=== PATIENT | female | born 1995 | race Two or more races ===

== ENCOUNTER 2016-12-05 13:23 | Emergency (ER) | payer MEDICAID ==
[2016-12-05 13:32] VITALS: BP 104/68
[2016-12-05] MEDS ORDERED: Sodium Chloride 0.9% 10 ML Syringe FLUSH PRN (13:46)
[2016-12-05] MEDS ORDERED: Ondansetron 4 MG/2 ML SDV IV ONE (13:46)
--- NOTE | 2016-12-05 13:51 | EDM.PDOC ---
ED HPI GENERAL MEDICAL PROBLEM - General Chief Complaint: General Stated Complaint: NOT FEELING WELL Time Seen by Provider: 12/05/16 13:44 Source of Information: Reports: Patient History Limitations: Reports: No Limitations - History of Present Illness INITIAL COMMENTS - FREE TEXT/NARRATIVE: This 21 yo female patient reports to the ED with an acute onset of abdominal pain with nausea/vomiting. [place] when she started to feel ill. The patient attempted to go to the bathroom, but vomited (3 times) on the carpeting prior to getting to the bathroom. Since that time, the patient has been experiencing increased diffuse abdominal pain. The patient has a past medical history of UC (surgical intervention in April of 2016) and frequent UTI's. The patient denies any diarrhea or bowel changes. The patient denies any UTI symptoms. Onset: Today Onset Date: 12/05/16 Onset Time: 13:00 Duration: Constant Location: Reports: Abdomen Quality: Reports: Ache, Dull Severity: Moderate Improves with: Reports: None Worsens with: Reports: None Associated Symptoms: Reports: Nausea/Vomiting, Other (abdominal pain) Abdominal Pain Score (Numeric/FACES): 6 - Related Data Allergies Allergy/AdvReac Type Severity Reaction Status Date / Time No Known Allergies Allergy Verified 12/05/16 13:29 Home Meds: Home Meds Multivitamin [Multivitamins] 1 each PO DAILY 01/09/14 [History] FLUoxetine [PROzac] 3 tab PO .ONCE A WEEK 06/06/14 [History] Past Medical History HEENT 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: None Cardiovascular 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: None Respiratory 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: None 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: None QUARRY BOSS 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: None Musculoskeletal 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: None Neurological 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: None Psychiatric 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: Depression Endocrine/Metabolic 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: Other (See Below) Other Endocrine/Metabolic History: enlarged pituitary gland Hematologic 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: None Immunologic 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: None Oncologic (Cancer) 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: None Dermatologic 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: None - Past Surgical History Head Surgeries/Procedures: Reports: None GI Surgical 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: Hernia Repair/Other, Other (See Below) Other GI Surgeries/Procedures: due to ulcerative colitis flare, patient had 1\3 of her colon removed. Umbilical hernia repaired. Social & Family History - Family History Family Medical History: Noncontributory - Tobacco Use Smoking Status *Q: Current Every Day Smoker Years of Tobacco use: 2 Packs/Tins Daily: 0.2 Used Tobacco, but Quit: Yes Month Tobacco Last Used: nov Second Hand Smoke Exposure: Yes - Caffeine Use Caffeine Use: Reports: None - Alcohol Use Days Per Week of Alcohol Use: 0 - Recreational Drug Use Recreational Drug Use: No Drug Use in Last 12 Months: No Recreational Drug Type: Reports: Marijuana/Hashish - Living Situation & Occupation Living situation: Reports: with Family ED ROS GENERAL - Review of Systems Review Of Systems: ROS reveals no pertinent complaints other than HPI. ED EXAM, GENERAL - Physical Exam Exam: See Below Exam Limited By: No Limitations General Appearance: Alert, WD/WN, Moderate Distress Eye Exam: Bilateral Eye: EOMI, Normal Inspection, PERRL Ears: Normal External Exam, Normal Canal, Hearing Grossly Normal, Normal TMs Nose: Normal Inspection, Normal Mucosa, No Blood Throat/Mouth: Normal Inspection, Normal Lips, Normal Teeth, Normal Gums, Normal Oropharynx, Normal Voice, No Airway Compromise Head: Atraumatic, Normocephalic Neck: Normal Inspection, Supple, Non-Tender, Full Range of Motion Respiratory/Chest: No Respiratory Distress, Lungs Clear, Normal Breath Sounds, No Accessory Muscle Use, Chest Non-Tender Cardiovascular: Normal Peripheral Pulses, Regular Rate, Rhythm, No Edema, No Gallop, No JVD, No Murmur, No Rub GI/Abdominal: Soft, No Organomegaly, No Distention, No Abnormal Bruit, Tender ( diffuse tenderness) (Female) Exam: Deferred Back Exam: Normal Inspection, Full Range of Motion, NT Extremities: Normal Inspection, Normal Range of Motion, Non-Tender, Normal Capillary Refill, No Pedal Edema Neurological: Alert, Oriented, CN II-XII Intact, Normal Cognition, Normal Gait, Normal Reflexes, No Motor/Sensory Deficits Psychiatric: Normal Affect, Normal Mood Skin Exam: Warm, Dry, Intact, Normal Color, No Rash Lymphatic: No Adenopathy Course - Vital Signs Last Recorded V/S: Last Vital Signs Temp 36.7 C 12/05/16 13:31 Pulse 71 12/05/16 13:31 Resp 14 12/05/16 13:31 BP 104/68 12/05/16 13:31 Pulse Ox 100 05/15/17 13:31 - Orders/Labs/Meds Orders: Active Orders 24 hr Category Date Time Status Sodium Chloride 0.9% [Saline Flush] Med 12/05/16 13:46 Active 10 ml FLUSH ASDIRECTED PRN Saline Lock Insert [OM.PC] Routine Oth 12/05/16 13:46 Ordered Medication Orders Sodium Chloride (Saline Flush) 10 ml FLUSH ASDIRECTED PRN PRN Reason: Keep Vein Open Last Admin: 12/05/16 13:57 Dose: 10 ml Labs: Laboratory Tests 12/05/16 12/05/16 12/05/16 Range/Units 13:55 13:55 13:55 WBC 6.5 (5.0-10.0) 10^3/uL RBC 4.52 (4.2-5.4) 10^6/uL Hgb 12.2 (12.0-16.0) g/dL Hct 38.1 (37.0-47.0) % MCV 84.3 (80-100) fL MCH 27.0 (27.0-34.0) pg MCHC 32.0 L (33.0-35.0) g/dL Plt Count 274 (150-450) 10^3/uL Neut % (Auto) 69.7 (42.2-75.2) % Lymph % (Auto) 21.9 (20.5-50.1) % Simpson % (Auto) 7.0 (2-8) % Eos % (Auto) 1.1 (1.0-3.0) % Baso % (Auto) 0.3 (0.0-1.0) % Sodium 135 (135-145) mmol/L Potassium 3.3 L (3.6-5.0) mmol/L Chloride 102 (101-111) mmol/L Carbon Dioxide 27.0 (21.0-31.0) mmol/L Anion Gap 9.3 BUN 12 (7-18) mg/dL Creatinine 0.7 (0.6-1.3) mg/dL Est Cr Clr Drug Dosing 123.63 mL/min Estimated GFR (MDRD) > 60 BUN/Creatinine Ratio 17.14 Glucose 99 (74-105) mg/dL Calcium 9.1 (8.4-10.2) mg/dl Total Bilirubin 0.8 (0.2-1.0) mg/dL AST 22 (10-42) IU/L ALT 13 (10-60) IU/L Alkaline Phosphatase 69 (42-121) IU/L Total Protein 8.1 (6.7-8.2) g/dl Albumin 4.5 (3.2-5.5) g/dl Globulin 3.6 Albumin/Globulin Ratio 1.25 Amylase 81 (28-100) U/L Lipase 23 (22-51) U/L Urine Color (YELLOW) Urine Appearance (CLEAR) Urine pH (5.0-9.0) Ur Specific [place] (1.005-1.030) Urine Protein (NEGATIVE) Urine Glucose (UA) (NEGATIVE) Urine Ketones (NEGATIVE) Urine Occult Blood (NEGATIVE) Urine Nitrite (NEGATIVE) Urine Bilirubin (NEGATIVE) Urine Urobilinogen (0.2-1.0) mg/dL Ur Leukocyte Esterase (NEGATIVE) Urine RBC /HPF Urine WBC (0-5/HPF) /HPF Ur Epithelial Cells /HPF Amorphous Sediment (0/HPF) /HPF Urine Mucus /LPF Urine HCG, Qual Urine Opiates Screen (NEGATIVE) Ur Oxycodone Screen (NEGATIVE) Urine Methadone Screen (NEGATIVE) Ur Barbiturates Screen (NEGATIVE) U Tricyclic Antidepress (NEGATIVE) Ur Phencyclidine Scrn (NEGATIVE) Ur Amphetamine Screen (NEGATIVE) U Methamphetamines Scrn (NEGATIVE) Urine MDMA Screen (NEGATIVE) U Benzodiazepines Scrn (NEGATIVE) Urine Cocaine Screen (NEGATIVE) U Marijuana (THC) Screen (NEGATIVE) 12/05/16 12/05/16 12/05/16 Range/Units 13:58 13:58 13:58 WBC (5.0-10.0) 10^3/uL RBC (4.2-5.4) 10^6/uL Hgb (12.0-16.0) g/dL Hct (37.0-47.0) % MCV (80-100) fL MCH (27.0-34.0) pg MCHC (33.0-35.0) g/dL Plt Count (150-450) 10^3/uL Neut % (Auto) (42.2-75.2) % Lymph % (Auto) (20.5-50.1) % Simpson % (Auto) (2-8) % Eos % (Auto) (1.0-3.0) % Baso % (Auto) (0.0-1.0) % Sodium (135-145) mmol/L Potassium (3.6-5.0) mmol/L Chloride (101-111) mmol/L Carbon Dioxide (21.0-31.0) mmol/L Anion Gap BUN (7-18) mg/dL Creatinine (0.6-1.3) mg/dL Est Cr Clr Drug Dosing mL/min Estimated GFR (MDRD) BUN/Creatinine Ratio Glucose (74-105) mg/dL Calcium (8.4-10.2) mg/dl Total Bilirubin (0.2-1.0) mg/dL AST (10-42) IU/L ALT (10-60) IU/L Alkaline Phosphatase (42-121) IU/L Total Protein (6.7-8.2) g/dl Albumin (3.2-5.5) g/dl Globulin Albumin/Globulin Ratio Amylase (28-100) U/L Lipase (22-51) U/L Urine Color Yellow (YELLOW) Urine Appearance Cloudy (CLEAR) Urine pH 8.5 (5.0-9.0) Ur Specific [place] 1.020 (1.005-1.030) Urine Protein Negative (NEGATIVE) Urine Glucose (UA) Negative (NEGATIVE) Urine Ketones Negative (NEGATIVE) Urine Occult Blood Negative (NEGATIVE) Urine Nitrite Negative (NEGATIVE) Urine Bilirubin Negative (NEGATIVE) Urine Urobilinogen 0.2 (0.2-1.0) mg/dL Ur Leukocyte Esterase Negative (NEGATIVE) Urine RBC Not seen /HPF Urine WBC Not seen (0-5/HPF) /HPF Ur Epithelial Cells Moderate H /HPF Amorphous Sediment Many H (0/HPF) /HPF Urine Mucus Moderate H /LPF Urine HCG, Qual Negative Urine Opiates Screen Negative (NEGATIVE) Ur Oxycodone Screen Negative (NEGATIVE) Urine Methadone Screen Negative (NEGATIVE) Ur Barbiturates Screen Negative (NEGATIVE) U Tricyclic Antidepress Negative (NEGATIVE) Ur Phencyclidine Scrn Negative (NEGATIVE) Ur Amphetamine Screen Negative (NEGATIVE) U Methamphetamines Scrn Negative (NEGATIVE) Urine MDMA Screen Negative (NEGATIVE) U Benzodiazepines Scrn Negative (NEGATIVE) Urine Cocaine Screen Negative (NEGATIVE) U Marijuana (THC) Screen Negative (NEGATIVE) Meds: Medications Generic Name Dose Route Start Last Admin Trade Name Freq PRN Reason Stop Dose Admin Sodium Chloride 10 ml 12/05/16 13:46 12/05/16 13:57 Saline Flush FLUSH 10 ml ASDIRECTED PRN Administration Keep Vein Open Discontinued Medications Generic Name Dose Route Start Last Admin Trade Name Faustino PRN Reason Stop Dose Admin Ondansetron HCl 4 mg 12/05/16 13:46 12/05/16 13:57 Zofran IV 12/05/16 13:47 4 mg ONETIME ONE Administration Departure - Departure Time of Disposition: 14:50 Disposition: Home, Self-Care 01 Condition: fair Clinical Impression: Gastroenteritis - Discharge Information Instructions: Viral Gastroenteritis, Adult, [id number] Forms: ED Department Discharge Care Plan Goals: The patient was advised of the examination, lab and x-ray results during the visit. The patient was given an IV dose of Zofran while in the ED. The patient was discharged with a script for Zofran ODT (4 mg) #10 to take 1 by mouth every 6 hours as needed for nausea. If the patient has any additional symptoms or concerns, the patient should follow-up with her primary care facility or return to the emergency department. - My Orders Last 24 Hours: My Active Orders 12/05/16 13:46 Sodium Chloride 0.9% [Saline Flush] 10 ml FLUSH ASDIRECTED PRN Saline Lock Insert [OM.PC] Routine - Assessment/Plan Last 24 Hours: My Active Orders 12/05/16 13:46 Sodium Chloride 0.9% [Saline Flush] 10 ml FLUSH ASDIRECTED PRN Saline Lock Insert [OM.PC] Routine
[2016-12-05 14:22] LABS: CHLORIDE,CL 102 mmol/L (101-111); SODIUM,NA 135 mmol/L (135-145)
--- NOTE | 2016-12-05 14:46 | CR ---
Clinical history: 21-year-old female with diffuse abdominal pain who has a history of "ulcerative co litis and one third of her large bowel removed" in April 2016. Interpretation: Flat and upright of the abdomen confirms gas in the stomach and rectum there is a ge neralized paucity of gas defining small or large intestine and no obvious fluid-filled loops bowel. No abdominal soft tissue mass lesion, pathologic calcifications, foreign body or signs of mechanical bowel obstruction. No free subdiaphragmatic air. Normal cardiac silhouette. Lung bases clear.
== END 2016-12-05 14:56 | disposition home or self-care (01) ==
LOC: DL.ED 13:23
DX: K52.9 Noninfective gastroenteritis and colitis, unspecified (principal); F32.9 Major depressive disorder, single episode, unspecified; F17.210 Nicotine dependence, cigarettes, uncomplicated; Z79.899 Other long term (current) drug therapy
CPT/HCPCS: 36415; 74020; 80053; 80305; 81001; 81025; 82150; 83690; 85025; 96374; 99284; J2405; J7050

== ENCOUNTER 2017-02-20 15:59 | Emergency (ER) | payer MEDICAID ==
[2017-02-20 16:03] VITALS: BP 108/63
--- NOTE | 2017-02-20 16:40 | EDM.PDOC ---
ED HPI GENERAL MEDICAL PROBLEM - General Chief Complaint: ENT Problem Stated Complaint: SORE THROAT, [id number] Time Seen by Provider: 02/20/17 16:30 Source of Information: Reports: Patient History Limitations: Reports: No Limitations - History of Present Illness INITIAL COMMENTS - FREE TEXT/NARRATIVE: This 21 yo female patient reports to the ED with a 2 day history of a sore throat and productive cough. The patient has been drinking cold water and milk. The patient has not taken any other medications. Onset Date: 02/18/17 Duration: Constant, Getting Worse Location: Reports: Neck Quality: Reports: Ache, Dull Severity: Mild Improves with: Reports: None Worsens with: Reports: None Associated Symptoms: Reports: No Other Symptoms Throat Pain Score (Numeric/FACES): 9 - Related Data Allergies Allergy/AdvReac Type Severity Reaction Status Date / Time No Known Allergies Allergy Verified 02/20/17 16:14 Home Meds: Home Meds Multivitamin [Multivitamins] 1 each PO DAILY 01/09/14 [History] FLUoxetine [PROzac] 3 tab PO .ONCE A WEEK 06/06/14 [History] Past Medical History HEENT 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: None Cardiovascular 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: None Respiratory 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: Asthma 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: None, UTI, Recurrent 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: Musculoskeletal 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: None Neurological 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: None Psychiatric 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: Depression Endocrine/Metabolic 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: Other (See Below) Other Endocrine/Metabolic History: enlarged pituitary gland Hematologic 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: None Immunologic 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: None Oncologic (Cancer) 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: None Dermatologic 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: None - Past Surgical History Head Surgeries/Procedures: Reports: None GI Surgical 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: Hernia Repair/Other, Other (See Below) Other GI Surgeries/Procedures: due to ulcerative colitis flare, patient had 1\3 of her colon removed. Umbilical hernia repaired. Social & Family History - Family History Family Medical History: Noncontributory - Tobacco Use Smoking Status *Q: Current Every Day Smoker Years of Tobacco use: 3 Packs/Tins Daily: 0.1 Used Tobacco, but Quit: Yes Month Tobacco Last Used: nov Second Hand Smoke Exposure: Yes - Caffeine Use Caffeine Use: Reports: Coffee - Alcohol Use Days Per Week of Alcohol Use: 1 Number of Drinks Per Day: 2 Total Drinks Per Week: 2 - Recreational Drug Use Recreational Drug Use: No Drug Use in Last 12 Months: No Recreational Drug Type: Reports: Marijuana/Hashish - Living Situation & Occupation Living situation: Reports: with Family ED ROS ENT - Review of Systems Review Of Systems: ROS reveals no pertinent complaints other than HPI. ED EXAM, ENT - Physical Exam Exam: See Below Exam Limited By: No Limitations General Appearance: Alert, WD/WN, No Apparent Distress Ears: Normal External Exam, Normal Canal, Hearing Grossly Normal, Normal TMs Nose: Normal Inspection, Normal Mucousa, No Blood Mouth/Throat: Normal Inspection, Normal Gums, Normal Lips, Normal Oropharynx, Normal Teeth Head: Atraumatic, Normocephalic Neck: Normal Inspection, Supple, Non-Tender, Full Range of Motion Respiratory/Chest: No Respiratory Distress, Lungs Clear, Normal Breath Sounds, No Accessory Muscle Use, Chest Non-Tender Cardiovascular: Normal Peripheral Pulses, Regular Rate, Rhythm, No Edema, No Gallop, No JVD, No Murmur, No Rub GI/Abdominal: Normal Bowel Sounds, Soft, Non-Tender, No Organomegaly, No Distention, No Abnormal Bruit, No Mass (Female) Exam: Deferred Rectal (Female) Exam: Deferred Back: Normal Inspection, Full Range of Motion Extremities: Normal Inspection, Normal Range of Motion, Non-Tender, No Pedal Edema, Normal Capillary Refill Neurological: Alert, Oriented, CN II-XII Intact, Normal Cognition, Normal Gait, Normal Reflexes, No Motor/Sensory Deficits Psychiatric: Normal Affect, Normal Mood Skin: Warm, Dry, Intact, Normal Color, No Rash Lymphatic: No Adenopathy Course - Vital Signs Last Recorded V/S: Last Vital Signs Temp 36.4 C 02/20/17 16:02 Pulse 71 02/20/17 16:02 Resp 18 02/20/17 16:02 BP 108/63 02/20/17 16:02 Pulse Ox 100 02/20/17 16:02 - Orders/Labs/Meds Orders: Active Orders 24 hr Category Date Time Status CULTURE STREP A CONFIRMATION [RM] Stat Lab 02/20/17 16:05 Results STREP SCRN A RAPID W CULT CONF [RM] Stat Lab 02/20/17 16:05 Received Departure - Departure Time of Disposition: 16:41 Disposition: Home, Self-Care 01 Condition: Fair Clinical Impression: Pharyngitis Qualifiers: Pharyngitis/tonsillitis etiology: unspecified etiology Qualified Code(s): J02.9 - Acute pharyngitis, unspecified - Discharge Information Instructions: Sore Throat, [id number] Forms: ED Department Discharge Care Plan Goals: The patient was advised of the examination and lab results during the visit. The patient was encouraged to take [id number] medications for temporary symptom relief. If the patient has any additional symptoms or concerns, the patient should visit her primary care provider or return to the emergency department. - My Orders Last 24 Hours: My Active Orders 02/20/17 16:05 CULTURE STREP A CONFIRMATION [RM] Stat STREP SCRN A RAPID W CULT CONF [RM] Stat - Assessment/Plan Last 24 Hours: My Active Orders 02/20/17 16:05 CULTURE STREP A CONFIRMATION [RM] Stat STREP SCRN A RAPID W CULT CONF [RM] Stat
== END 2017-02-20 16:40 | disposition home or self-care (01) ==
LOC: DL.ED 15:59
DX: J02.9 Acute pharyngitis, unspecified (principal); J45.909 Unspecified asthma, uncomplicated; F32.9 Major depressive disorder, single episode, unspecified; F17.210 Nicotine dependence, cigarettes, uncomplicated; Z87.440 Personal history of urinary (tract) infections; Z79.899 Other long term (current) drug therapy; Z98.890 Other specified postprocedural states
CPT/HCPCS: 87081; 87430; 99283

== ENCOUNTER 2017-05-11 08:47 | Emergency (ER) | payer MEDICAID ==
[2017-05-11 09:00] VITALS: BP 105/67
[2017-05-11] MEDS ORDERED: Sodium Chloride 0.9% 1,000 ML IV ONE (09:11)
[2017-05-11] MEDS ORDERED: Ondansetron 4 MG/2 ML SDV IV ONE (09:11)
--- NOTE | 2017-05-11 09:19 | EDM.PDOC ---
ED HPI GENERAL MEDICAL PROBLEM - General Chief Complaint: Abdominal Pain Stated Complaint: [id number] NOT FEELING WELL DIZZY NAUSEA Time Seen by Provider: 05/11/17 08:55 Source of Information: Reports: Patient History Limitations: Reports: No Limitations - History of Present Illness INITIAL COMMENTS - FREE TEXT/NARRATIVE: This 21 yo female patient reports to the ED with nausea/vomiting, chest pain and dizziness over the past 3 days. The patient reports her chest pain has been a sharp stabbing pain ("like someone is stabbing a knife in my chest"). The patient reports she has not taken anything for her symptoms. The patient attempted to get into her primary care facility ([facility]), but was told that she would have to make an appointment (scheduled for next week). The patient reports her symptoms have been getting worse throughout the episode. The patient does not believe that she is (last menstrual cycle was last week). Onset Date: 05/09/17 Duration: Constant, Getting Worse Location: Reports: Chest, Abdomen, Generalized (dizziness) Quality: Reports: Ache, Sharp Severity: Severe Improves with: Reports: None Worsens with: Reports: Eating Associated Symptoms: Reports: Nausea/Vomiting, Weakness, Other (intermittent dizziness) Bilateral Mid-Sternal Chest Pain Score (Numeric/FACES): 8 - Related Data Allergies Allergy/AdvReac Type Severity Reaction Status Date / Time No Known Allergies Allergy Verified 02/20/17 16:14 Home Meds: Home Meds Multivitamin [Multivitamins] 1 each PO DAILY 01/09/14 [History] FLUoxetine [PROzac] 1 tab PO DAILY 06/06/14 [History] Past Medical History HEENT 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: None Cardiovascular 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: None Respiratory 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: Asthma 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: None, UTI, Recurrent 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 COORDINATOR 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: Musculoskeletal 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: None Neurological 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: None Psychiatric 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: Depression Endocrine/Metabolic 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: Other (See Below) Other Endocrine/Metabolic History: enlarged pituitary gland Hematologic 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: None Immunologic 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: None Oncologic (Cancer) 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: None Dermatologic 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: None - Past Surgical History Head Surgeries/Procedures: Reports: None HEENT Surgical 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: Other (See Below) Other HEENT Surgeries/Procedures: wisdom teeth GI Surgical 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: Hernia Repair/Other, Other (See Below) Other GI Surgeries/Procedures: due to ulcerative colitis flare, patient had 1\\3 of her colon removed. Umbilical hernia repaired. Social & Family History - Family History Family Medical History: Noncontributory - Tobacco Use Smoking Status *Q: Current Every Day Smoker Years of Tobacco use: 3 Packs/Tins Daily: 0.1 Used Tobacco, but Quit: Yes Month Tobacco Last Used: nov Second Hand Smoke Exposure: Yes - Caffeine Use Caffeine Use: Reports: Coffee - Alcohol Use Days Per Week of Alcohol Use: 1 Number of Drinks Per Day: 2 Total Drinks Per Week: 2 - Recreational Drug Use Recreational Drug Use: No Drug Use in Last 12 Months: No Recreational Drug Type: Reports: Marijuana/Hashish - Living Situation & Occupation Living situation: Reports: with Family ED ROS GENERAL - Review of Systems Review Of Systems: ROS reveals no pertinent complaints other than HPI. ED EXAM, GI/ABD - Physical Exam Exam: See Below Exam Limited By: No Limitations General Appearance: Alert, WD/WN, Moderate Distress Eyes: Bilateral: Normal Appearance, EOMI Ears: Normal External Exam, Normal Canal, Hearing Grossly Normal, Normal TMs Nose: Normal Inspection, Normal Mucosa, No Blood Throat/Mouth: Normal Inspection, Normal Lips, Normal Teeth, Normal Gums, Normal Oropharynx, Normal Voice, No Airway Compromise Head: Atraumatic, Normocephalic Neck: Normal Inspection, Supple, Non-Tender, Full Range of Motion Respiratory/Chest: No Respiratory Distress, Lungs Clear, Normal Breath Sounds, No Accessory Muscle Use, Chest Non-Tender Cardiovascular: Normal Peripheral Pulses, Regular Rate, Rhythm, No Edema, No Gallop, No JVD, No Murmur, No Rub GI/Abdominal Exam: Normal Bowel Sounds, Soft, Non-Tender, No Organomegaly, No Distention, No Abnormal Bruit, No Mass, Pelvis Stable (Female) Exam: Deferred Rectal (Female) Exam: Deferred Back Exam: Normal Inspection, Full Range of Motion, NT Extremities: Normal Inspection, Normal Range of Motion, Non-Tender, Normal Capillary Refill, No Pedal Edema Neurological: Alert, Oriented, CN II-XII Intact, Normal Cognition, Normal Gait, Normal Reflexes, No Motor/Sensory Deficits Psychiatric: Normal Affect, Normal Mood Skin Exam: Warm, Dry, Intact, Normal Color, No Rash Lymphatic: No Adenopathy Course - Vital Signs Last Recorded V/S: Last Vital Signs Temp 36.4 C 05/11/17 08:59 Pulse 76 05/11/17 08:59 Resp 16 05/11/17 08:59 BP 105/67 05/11/17 08:59 Pulse Ox 100 05/11/17 08:59 - Orders/Labs/Meds Orders: Active Orders 24 hr Category Date Time Status EKG Documentation Completion [RC] URGENT Care 05/11/17 09:10 Active Pantoprazole [ProTONIX IV] Med 05/11/17 10:32 Once 80 mg IVPUSH .BOLUS ONE Medication Orders Pantoprazole Sodium (Protonix Iv) 80 mg IVPUSH .BOLUS ONE Stop: 05/11/17 10:33 Labs: Laboratory Tests 05/11/17 05/11/17 05/11/17 Range/Units 09:22 09:22 09:30 WBC 5.3 (5.0-10.0) 10^3/uL RBC 4.57 (4.2-5.4) 10^6/uL Hgb 13.0 (12.0-16.0) g/dL Hct 40.3 (37.0-47.0) % MCV 88.2 D (80-100) fL MCH 28.4 (27.0-34.0) pg MCHC 32.3 L (33.0-35.0) g/dL Plt Count 268 (150-450) 10^3/uL Neut % (Auto) 45.1 (42.2-75.2) % Lymph % (Auto) 38.1 (20.5-50.1) % [place] % (Auto) 9.2 H (2-8) % Eos % (Auto) 7.2 H (1.0-3.0) % Baso % (Auto) 0.4 (0.0-1.0) % Sodium 138 (135-145) mmol/L Potassium 3.9 (3.6-5.0) mmol/L Chloride 105 (101-111) mmol/L Carbon Dioxide 25.0 (21.0-31.0) mmol/L Anion Gap 11.9 BUN 20 H (7-18) mg/dL Creatinine 0.8 (0.6-1.3) mg/dL Est Cr Clr Drug Dosing 108.17 mL/min Estimated GFR (MDRD) > 60 BUN/Creatinine Ratio 25.00 Glucose 86 (74-105) mg/dL Calcium 9.2 (8.4-10.2) mg/dl Magnesium 2.0 (1.8-2.5) mg/dL Total Bilirubin 0.8 (0.2-1.0) mg/dL AST 17 (10-42) IU/L ALT 10 (10-60) IU/L Alkaline Phosphatase 59 (42-121) IU/L Troponin I < 0.02 (0.00-0.02) ng/ml Total Protein 7.6 (6.7-8.2) g/dl Albumin 4.3 (3.2-5.5) g/dl Globulin 3.3 Albumin/Globulin Ratio 1.30 Amylase 86 (28-100) U/L Lipase 25 (22-51) U/L Urine Color (YELLOW) Urine Appearance (CLEAR) Urine pH (5.0-9.0) Ur Specific [place] (1.005-1.030) Urine Protein (NEGATIVE) Urine Glucose (UA) (NEGATIVE) Urine Ketones (NEGATIVE) Urine Occult Blood (NEGATIVE) Urine Nitrite (NEGATIVE) Urine Bilirubin (NEGATIVE) Urine Urobilinogen (0.2-1.0) mg/dL Ur Leukocyte Esterase (NEGATIVE) Urine RBC /HPF Urine WBC (0-5/HPF) /HPF Ur Epithelial Cells /HPF Amorphous Sediment (0/HPF) /HPF Urine Bacteria (0-FEW/HPF) /HPF Urine Mucus /LPF Urine HCG, Qual Urine Opiates Screen Negative (NEGATIVE) Ur Oxycodone Screen Negative (NEGATIVE) Urine Methadone Screen Negative (NEGATIVE) Ur Barbiturates Screen Negative (NEGATIVE) U Tricyclic Antidepress Negative (NEGATIVE) Ur Phencyclidine Scrn Negative (NEGATIVE) Ur Amphetamine Screen Negative (NEGATIVE) U Methamphetamines Scrn Negative (NEGATIVE) Urine MDMA Screen Negative (NEGATIVE) U Benzodiazepines Scrn Negative (NEGATIVE) Urine Cocaine Screen Negative (NEGATIVE) U Marijuana (THC) Screen Negative (NEGATIVE) 05/11/17 05/11/17 Range/Units 09:30 09:30 WBC (5.0-10.0) 10^3/uL RBC (4.2-5.4) 10^6/uL Hgb (12.0-16.0) g/dL Hct (37.0-47.0) % MCV (80-100) fL MCH (27.0-34.0) pg MCHC (33.0-35.0) g/dL Plt Count (150-450) 10^3/uL Neut % (Auto) (42.2-75.2) % Lymph % (Auto) (20.5-50.1) % [place] % (Auto) (2-8) % Eos % (Auto) (1.0-3.0) % Baso % (Auto) (0.0-1.0) % Sodium (135-145) mmol/L Potassium (3.6-5.0) mmol/L Chloride (101-111) mmol/L Carbon Dioxide (21.0-31.0) mmol/L Anion Gap BUN (7-18) mg/dL Creatinine (0.6-1.3) mg/dL Est Cr Clr Drug Dosing mL/min Estimated GFR (MDRD) BUN/Creatinine Ratio Glucose (74-105) mg/dL Calcium (8.4-10.2) mg/dl Magnesium (1.8-2.5) mg/dL Total Bilirubin (0.2-1.0) mg/dL AST (10-42) IU/L ALT (10-60) IU/L Alkaline Phosphatase (42-121) IU/L Troponin I (0.00-0.02) ng/ml Total Protein (6.7-8.2) g/dl Albumin (3.2-5.5) g/dl Globulin Albumin/Globulin Ratio Amylase (28-100) U/L Lipase (22-51) U/L Urine Color Yellow (YELLOW) Urine Appearance Slightly cloudy (CLEAR) Urine pH 7.5 (5.0-9.0) Ur Specific [place] 1.020 (1.005-1.030) Urine Protein 30 H (NEGATIVE) Urine Glucose (UA) Negative (NEGATIVE) Urine Ketones Negative (NEGATIVE) Urine Occult Blood Negative (NEGATIVE) Urine Nitrite Negative (NEGATIVE) Urine Bilirubin Negative (NEGATIVE) Urine Urobilinogen 0.2 (0.2-1.0) mg/dL Ur Leukocyte Esterase Negative (NEGATIVE) Urine RBC 0-5 /HPF Urine WBC 0-5 (0-5/HPF) /HPF Ur Epithelial Cells Moderate H /HPF Amorphous Sediment Moderate H (0/HPF) /HPF Urine Bacteria Few (0-FEW/HPF) /HPF Urine Mucus Rare /LPF Urine HCG, Qual Negative Urine Opiates Screen (NEGATIVE) Ur Oxycodone Screen (NEGATIVE) Urine Methadone Screen (NEGATIVE) Ur Barbiturates Screen (NEGATIVE) U Tricyclic Antidepress (NEGATIVE) Ur Phencyclidine Scrn (NEGATIVE) Ur Amphetamine Screen (NEGATIVE) U Methamphetamines Scrn (NEGATIVE) Urine MDMA Screen (NEGATIVE) U Benzodiazepines Scrn (NEGATIVE) Urine Cocaine Screen (NEGATIVE) U Marijuana (THC) Screen (NEGATIVE) Meds: Medications Generic Name Dose Route Start Last Admin Trade Name Freq PRN Reason Stop Dose Admin Pantoprazole Sodium 80 mg 05/11/17 10:32 Protonix Iv IVPUSH 05/11/17 10:33 .BOLUS ONE Discontinued Medications Generic Name Dose Route Start Last Admin Trade Name Freq PRN Reason Stop Dose Admin Sodium Chloride 1,000 mls @ 999 mls/hr 05/11/17 09:11 05/11/17 09:52 Normal Saline IV 05/11/17 10:11 999 mls/hr .BOLUS ONE Administration Ondansetron HCl 4 mg 05/11/17 09:11 05/11/17 09:56 Zofran IV 05/11/17 09:12 4 mg ONETIME ONE Administration Departure - Departure Time of Disposition: 10:45 Disposition: Home, Self-Care 01 Condition: Fair Clinical Impression: Gastroenteritis GERD (gastroesophageal reflux disease) Qualifiers: Esophagitis presence: with esophagitis Qualified Code(s): K21.0 - Gastro- esophageal reflux disease with esophagitis - Discharge Information Instructions: Viral Gastroenteritis, Adult, [id number], Gastroesophageal Reflux Disease, Adult Forms: ED Department Discharge Care Plan Goals: The patient was advised of the examination, lab and EKG results during the visit in the ED. The patient was given a liter of Normal Saline, IV Zofran and IV Protonix while in the ED. The patient was discharged with a script for Prilosec (20 mg) #60 to take 1 by mouth 2 times per day and Zofran (4 mg) #20 to take 1 by mouth every 6 hours as needed. The patient should stick to a BRAT diet (Bananas, Rice, Applesauce and Ina) over the next 48 hours with small frequent sips of fluid. If the patient has any additional symptoms or concerns, the patient should follow-up with her primary care facility or return to the emergency department. - My Orders Last 24 Hours: My Active Orders 05/11/17 09:10 EKG Documentation Completion [RC] URGENT 05/11/17 10:32 Pantoprazole [ProTONIX IV] 80 mg IVPUSH .BOLUS ONE - Assessment/Plan Last 24 Hours: My Active Orders 05/11/17 09:10 EKG Documentation Completion [RC] URGENT 05/11/17 10:32 Pantoprazole [ProTONIX IV] 80 mg IVPUSH .BOLUS ONE
[2017-05-11 09:50] LABS: CHLORIDE,CL 105 mmol/L (101-111); SODIUM,NA 138 mmol/L (135-145)
[2017-05-11] MEDS ORDERED: Pantoprazole 40 MG Vial IVPUSH ONE (10:32)
--- NOTE | 2017-05-12 09:46 | EKG ---
05/11/2017 - ELIANA GARCIA - TIME OF SERVICE: 09:43 a.m. FINDINGS: EKG shows sinus rhythm. There is nonspecific T-wave abnormality. [facility] /[id number]
== END 2017-05-11 11:15 | disposition home or self-care (01) ==
LOC: DL.ED 08:47
DX: K52.9 Noninfective gastroenteritis and colitis, unspecified (principal); K21.0 Gastro-esophageal reflux disease with esophagitis; R07.9 Chest pain, unspecified; R42 Dizziness and giddiness; F17.210 Nicotine dependence, cigarettes, uncomplicated; F32.9 Major depressive disorder, single episode, unspecified
CPT/HCPCS: 36415; 80053; 80305; 81001; 81025; 82150; 83690; 83735; 84484; 85025; 87804; 93005; 96361; 96374; 96375; 99284; C9113; J2405; J7030

== ENCOUNTER 2017-11-21 20:07 | Emergency (ER) | payer MEDICAID, OTHER ==
[2017-11-21 21:37] LABS: CHLORIDE,CL 109 mmol/L (101-111); SODIUM,NA 141 mmol/L (135-145)
--- NOTE | 2017-11-21 22:31 | EDM.PDOC ---
ED HPI GENERAL MEDICAL PROBLEM - General Chief Complaint: Chest Pain Stated Complaint: [id number] CONFUSION,CHEST PAIN Time Seen by Provider: 11/21/17 22:20 Source of Information: Reports: Patient History Limitations: Reports: No Limitations - History of Present Illness INITIAL COMMENTS - FREE TEXT/NARRATIVE: This 22 yo female patient reports to the ED due to intermittent chest pain for the past 2-3 days. The patient also reports that she feels a little "lost". The patient went on to describe her feelings. The patient states that she "feels like she does not know where she is, but she knows she has been here before." The patient reports her primary care provider changed the time that she takes her Paxil to taking it at night about 1 week ago. The patient reports she has not tried to take anything for her intermittent chest pain. Onset: Gradual Duration: Day(s): (2), Intermittent Location: Reports: Chest, Generalized Quality: Reports: Ache, Dull Severity: Moderate Improves with: Reports: None Worsens with: Reports: None Context: Reports: Other Associated Symptoms: Reports: No Other Symptoms Treatments LAMP INSPECTOR: Reports: Other (see below) Other Treatments LAMP INSPECTOR: none Chest Pain Score (Numeric/FACES): 8 - Related Data Allergies Allergy/AdvReac Type Severity Reaction Status Date / Time No Known Allergies Allergy Verified 11/21/17 21:37 Home Meds: Home Meds Multivitamin [Multivitamins] 1 each PO DAILY 01/09/14 [History] FLUoxetine [PROzac] 2 tab PO DAILY 06/06/14 [History] Melatonin 3 mg PO BEDTIME 11/21/17 [History] Past Medical History HEENT 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: None Cardiovascular 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: None Respiratory 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: Asthma 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: None, UTI, Recurrent 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 HELPER 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: Musculoskeletal 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: None Neurological 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: None Psychiatric 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: Depression Endocrine/Metabolic 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: Other (See Below) Other Endocrine/Metabolic History: enlarged pituitary gland Hematologic 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: None Immunologic 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: None Oncologic (Cancer) 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: None Dermatologic 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: None - Past Surgical History Head Surgeries/Procedures: Reports: None HEENT Surgical 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: Other (See Below) Other HEENT Surgeries/Procedures: wisdom teeth GI Surgical 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: Hernia Repair/Other, Other (See Below) Other GI Surgeries/Procedures: due to ulcerative colitis flare, patient had 1\\3 of her colon removed. Umbilical hernia repaired. Social & Family History - Family History Family Medical History: Noncontributory - Tobacco Use Smoking Status *Q: Current Every Day Smoker Years of Tobacco use: 4 Packs/Tins Daily: 0.1 Used Tobacco, but Quit: Yes Month/Year Tobacco Last Used: nov Second Hand Smoke Exposure: Yes - Caffeine Use Caffeine Use: Reports: Coffee, Tea - Alcohol Use Days Per Week of Alcohol Use: 1 Number of Drinks Per Day: 2 Total Drinks Per Week: 2 - Recreational Drug Use Recreational Drug Use: No Drug Use in Last 12 Months: No Recreational Drug Type: Reports: Marijuana/Hashish - Living Situation & Occupation Living situation: Reports: with Family ED ROS GENERAL - Review of Systems Review Of Systems: ROS reveals no pertinent complaints other than HPI. ED EXAM, GENERAL - Physical Exam Exam: See Below Exam Limited By: No Limitations General Appearance: Alert, WD/WN, No Apparent Distress Eye Exam: Bilateral Eye: EOMI, Normal Inspection, PERRL Ears: Normal External Exam, Normal Canal, Hearing Grossly Normal, Normal TMs Nose: Normal Inspection, Normal Mucosa, No Blood Throat/Mouth: Normal Inspection, Normal Lips, Normal Teeth, Normal Gums, Normal Oropharynx, Normal Voice, No Airway Compromise Head: Atraumatic, Normocephalic Neck: Normal Inspection, Supple, Non-Tender, Full Range of Motion Respiratory/Chest: No Respiratory Distress, Lungs Clear, Normal Breath Sounds, No Accessory Muscle Use, Chest Non-Tender Cardiovascular: Normal Peripheral Pulses, Regular Rate, Rhythm, No Edema, No Gallop, No JVD, No Murmur, No Rub GI/Abdominal: Normal Bowel Sounds, Soft, Non-Tender, No Organomegaly, No Distention, No Abnormal Bruit, No Mass (Female) Exam: Deferred Rectal (Female) Exam: Deferred Back Exam: Normal Inspection, Full Range of Motion, NT Extremities: Normal Inspection, Normal Range of Motion, Non-Tender, Normal Capillary Refill, No Pedal Edema Neurological: Alert, Oriented, CN II-XII Intact, Normal Cognition, Normal Gait, Normal Reflexes, No Motor/Sensory Deficits Psychiatric: Normal Affect, Normal Mood Skin Exam: Warm, Dry, Intact, Normal Color, No Rash Lymphatic: No Adenopathy Course - Vital Signs Last Recorded V/S: Last Vital Signs Temp 36.7 C 11/21/17 20:20 Pulse 63 11/21/17 22:15 Resp 17 11/21/17 22:15 BP 91/58 L 11/21/17 22:15 Pulse Ox 98 11/21/17 22:15 - Orders/Labs/Meds Orders: Active Orders 24 hr Category Date Time Status EKG Documentation Completion [RC] URGENT Care 11/21/17 20:43 Active DRUG SCREEN URINE BIORAD [URCHEM] Stat Lab 11/21/17 20:30 Ordered HCG QUALITATIVE,URINE [URCHEM] Stat Lab 11/21/17 20:30 Ordered UA W/MICROSCOPIC [URIN] Stat Lab 11/21/17 20:30 Ordered Labs: Laboratory Tests 11/21/17 11/21/17 11/21/17 Range/Units 20:30 20:30 20:30 WBC (5.0-10.0) 10^3/uL RBC (4.2-5.4) 10^6/uL Hgb (12.0-16.0) g/dL Hct (37.0-47.0) % MCV (80-100) fL MCH (27.0-34.0) pg MCHC (33.0-35.0) g/dL Plt Count (150-450) 10^3/uL Neut % (Auto) (42.2-75.2) % Lymph % (Auto) (20.5-50.1) % [place] % (Auto) (2-8) % Eos % (Auto) (1.0-3.0) % Baso % (Auto) (0.0-1.0) % Sodium (135-145) mmol/L Potassium (3.6-5.0) mmol/L Chloride (101-111) mmol/L Carbon Dioxide (21.0-31.0) mmol/L Anion Gap BUN (7-18) mg/dL Creatinine (0.6-1.3) mg/dL Est Cr Clr Drug Dosing Estimated GFR (MDRD) BUN/Creatinine Ratio Glucose (74-105) mg/dL Calcium (8.4-10.2) mg/dl Total Bilirubin (0.2-1.0) mg/dL AST (10-42) IU/L ALT (10-60) IU/L Alkaline Phosphatase (42-121) IU/L Troponin I (0.00-0.02) ng/ml Total Protein (6.7-8.2) g/dl Albumin (3.2-5.5) g/dl Globulin Albumin/Globulin Ratio Urine Color Yellow (YELLOW) Urine Appearance Slightly cloudy (CLEAR) Urine pH 5.5 (5.0-9.0) Ur Specific [place] >= 1.030 (1.005-1.030) Urine Protein Negative (NEGATIVE) Urine Glucose (UA) Negative (NEGATIVE) Urine Ketones Negative (NEGATIVE) Urine Occult Blood Negative (NEGATIVE) Urine Nitrite Negative (NEGATIVE) Urine Bilirubin Negative (NEGATIVE) Urine Urobilinogen 0.2 (0.2-1.0) mg/dL Ur Leukocyte Esterase Trace H (NEGATIVE) Urine RBC 0-5 /HPF Urine WBC 5-10 H (0-5/HPF) /HPF Ur Epithelial Cells Few /HPF Amorphous Sediment Rare (0/HPF) /HPF Urine Bacteria Few (0-FEW/HPF) /HPF Urine Mucus Few H /LPF Urine HCG, Qual Negative Urine Opiates Screen Negative (NEGATIVE) Ur Oxycodone Screen Negative (NEGATIVE) Urine Methadone Screen Negative (NEGATIVE) Ur Barbiturates Screen Negative (NEGATIVE) U Tricyclic Antidepress Negative (NEGATIVE) Ur Phencyclidine Scrn Negative (NEGATIVE) Ur Amphetamine Screen Negative (NEGATIVE) U Methamphetamines Scrn Negative (NEGATIVE) Urine MDMA Screen Negative (NEGATIVE) U Benzodiazepines Scrn Negative (NEGATIVE) Urine Cocaine Screen Negative (NEGATIVE) U Marijuana (THC) Screen Negative (NEGATIVE) 11/21/17 11/21/17 Range/Units 21:05 21:05 WBC 5.9 (5.0-10.0) 10^3/uL RBC 4.06 L (4.2-5.4) 10^6/uL Hgb 11.5 L D (12.0-16.0) g/dL Hct 35.9 L (37.0-47.0) % MCV 88.4 (80-100) fL MCH 28.3 (27.0-34.0) pg MCHC 32.0 L (33.0-35.0) g/dL Plt Count 275 (150-450) 10^3/uL Neut % (Auto) 33.0 L (42.2-75.2) % Lymph % (Auto) 49.7 (20.5-50.1) % [place] % (Auto) 10.3 H (2-8) % Eos % (Auto) 6.7 H (1.0-3.0) % Baso % (Auto) 0.3 (0.0-1.0) % Sodium 141 (135-145) mmol/L Potassium 4.5 (3.6-5.0) mmol/L Chloride 109 (101-111) mmol/L Carbon Dioxide 28.0 (21.0-31.0) mmol/L Anion Gap 8.5 BUN 18 (7-18) mg/dL Creatinine 0.8 (0.6-1.3) mg/dL Est Cr Clr Drug Dosing TNP Estimated GFR (MDRD) > 60 BUN/Creatinine Ratio 22.50 Glucose 83 (74-105) mg/dL Calcium 9.1 (8.4-10.2) mg/dl Total Bilirubin 0.4 (0.2-1.0) mg/dL AST 17 (10-42) IU/L ALT 12 (10-60) IU/L Alkaline Phosphatase 56 (42-121) IU/L Troponin I < 0.02 (0.00-0.02) ng/ml Total Protein 7.2 (6.7-8.2) g/dl Albumin 3.8 (3.2-5.5) g/dl Globulin 3.4 Albumin/Globulin Ratio 1.12 Urine Color (YELLOW) Urine Appearance (CLEAR) Urine pH (5.0-9.0) Ur Specific [place] (1.005-1.030) Urine Protein (NEGATIVE) Urine Glucose (UA) (NEGATIVE) Urine Ketones (NEGATIVE) Urine Occult Blood (NEGATIVE) Urine Nitrite (NEGATIVE) Urine Bilirubin (NEGATIVE) Urine Urobilinogen (0.2-1.0) mg/dL Ur Leukocyte Esterase (NEGATIVE) Urine RBC /HPF Urine WBC (0-5/HPF) /HPF Ur Epithelial Cells /HPF Amorphous Sediment (0/HPF) /HPF Urine Bacteria (0-FEW/HPF) /HPF Urine Mucus /LPF Urine HCG, Qual Urine Opiates Screen (NEGATIVE) Ur Oxycodone Screen (NEGATIVE) Urine Methadone Screen (NEGATIVE) Ur Barbiturates Screen (NEGATIVE) U Tricyclic Antidepress (NEGATIVE) Ur Phencyclidine Scrn (NEGATIVE) Ur Amphetamine Screen (NEGATIVE) U Methamphetamines Scrn (NEGATIVE) Urine MDMA Screen (NEGATIVE) U Benzodiazepines Scrn (NEGATIVE) Urine Cocaine Screen (NEGATIVE) U Marijuana (THC) Screen (NEGATIVE) Departure - Departure Time of Disposition: 22:33 Disposition: Home, Self-Care 01 Condition: Fair Clinical Impression: Non-cardiac chest pain - Discharge Information Instructions: Nonspecific Chest Pain, [id number] Referrals: Mabel Yodre MD [Primary Care Provider] - Care Plan Goals: The patient was advised of the examination, lab and EKG results during the visit. The patient was encouraged to follow-up with her primary care facility for further evaluation and treatment. If the patient has any additional symptoms or concerns, the patient should visit her primary care facility or return to the emergency department. - My Orders Last 24 Hours: My Active Orders 11/21/17 20:30 DRUG SCREEN URINE BIORAD [URCHEM] Stat HCG QUALITATIVE,URINE [URCHEM] Stat UA W/MICROSCOPIC [URIN] Stat 11/21/17 20:43 EKG Documentation Completion [RC] URGENT - Assessment/Plan Last 24 Hours: My Active Orders 11/21/17 20:30 DRUG SCREEN URINE BIORAD [URCHEM] Stat HCG QUALITATIVE,URINE [URCHEM] Stat UA W/MICROSCOPIC [URIN] Stat 11/21/17 20:43 EKG Documentation Completion [RC] URGENT
[2017-11-21 22:42] VITALS: BP 95/63
--- NOTE | 2017-11-22 16:09 | EKG ---
11/21/2017 - ELIANA GARCIA - TIME: 8:07 p.m. FINDINGS: Sinus rhythm. [facility] /[id number]
== END 2017-11-21 22:43 | disposition home or self-care (01) ==
LOC: DL.ED 20:07
DX: R07.89 Other chest pain (principal); F17.210 Nicotine dependence, cigarettes, uncomplicated; Z79.899 Other long term (current) drug therapy
CPT/HCPCS: 36415; 80053; 80305; 81001; 81025; 84484; 85025; 93005; 99285

== ENCOUNTER 2018-09-09 14:20 | Emergency (ER) | payer MEDICAID ==
[2018-09-09 14:54] VITALS: BP 85/58
[2018-09-09 15:24] LABS: ANION GAP 14.4; CHLORIDE,CL 103 mmol/L (101-111); SODIUM,NA 135 mmol/L (135-145)
[2018-09-09 15:27] LABS: ACETAMINOPHEN < 10 ug/mL
[2018-09-09] MEDS ORDERED: Cephalexin 500 MG Cap PO ONE (16:11)
--- NOTE | 2018-09-09 16:20 | EDM.PDOCBH ---
Scribed by Katelyn Farley 09/09/18 [id number] for Kobi Millan PA ED HPI GENERAL MEDICAL PROBLEM - General Chief Complaint: Behavioral/Psych Stated Complaint: MEETING THERAPIST FOR SUICIDAL THOUGHTS Time Seen by Provider: 09/09/18 15:10 Source of Information: Reports: Patient, RN, RN Notes Reviewed History Limitations: Reports: No Limitations - History of Present Illness INITIAL COMMENTS - FREE TEXT/NARRATIVE: Patient stated "I just want to end it". "I don't want to be on the earth". "I am the reason the family is in pain everyday". Deon friend and her had an argument over $95. she states "ruined someone else life". She is planning overdosing on 2 medications (Duloxitine and Trazodone). She had on her bed but did not take. She had a few sips of EOTH of marques last Monday. Onset: Gradual Duration: Constant Severity: Severe Improves with: Reports: None Worsens with: Reports: None Associated Symptoms: Reports: No Other Symptoms - Related Data Allergies Allergy/AdvReac Type Severity Reaction Status Date / Time No Known Allergies Allergy Verified 09/09/18 14:48 Home Meds: Home Meds DULoxetine HCl [Cymbalta] 60 mg PO DAILY 09/09/18 [History] Multivitamin [Multi-Day Vitamins] 1 tab PO DAILY 09/09/18 [History] traZODone HCl [Trazodone HCl] 50 mg PO BEDTIME 09/09/18 [History] Past Medical History HEENT 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: None Cardiovascular 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: None Respiratory 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: Asthma Other Respiratory History: just as a child. no longer troubles pt. 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, Recurrent [employer] 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: Musculoskeletal 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: None Neurological 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: None Psychiatric 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: Depression, Suicide Attempt, Suicidal Ideation Endocrine/Metabolic 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: Other (See Below) Other Endocrine/Metabolic History: enlarged pituitary gland Hematologic 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: None Immunologic 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: None Oncologic (Cancer) 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: None Dermatologic 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: None - Infectious Disease History Infectious Disease 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: Chicken Pox - Past Surgical History Head Surgeries/Procedures: Reports: None HEENT Surgical 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: Other (See Below) Other HEENT Surgeries/Procedures: wisdom teeth GI Surgical 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: Hernia Repair/Other, Other (See Below) Other GI Surgeries/Procedures: due to ulcerative colitis flare, patient had 1\\3 of her colon removed. Umbilical hernia repaired. Social & Family History - Family History Family Medical History: Noncontributory - Tobacco Use Smoking Status *Q: Current Every Day Smoker Years of Tobacco use: 4 Packs/Tins Daily: 1 - Caffeine Use Caffeine Use: Reports: Coffee, Energy Drinks, Soda Caffeine Use Comment: coffee in the morning. - Recreational Drug Use Recreational Drug Use: No - Living Situation & Occupation Living situation: Reports: with Family ED ROS GENERAL - Review of Systems Review Of Systems: ROS reveals no pertinent complaints other than HPI. ED EXAM, BEHAVIORAL HEALTH - Physical Exam Exam: See Below Exam Limited By: No Limitations General Appearance: Other (depressed) Eye Exam: Bilateral Eye: EOMI, Normal Inspection, PERRL Ears: Normal External Exam, Normal Canal, Hearing Grossly Normal, Normal TMs Nose: Normal Inspection, Normal Mucosa, No Blood Throat/Mouth: Normal Inspection, Normal Lips, Normal Teeth, Normal Gums, Normal Oropharynx, Normal Voice, No Airway Compromise Head: Atraumatic, Normocephalic Neck: Normal Inspection, Supple, Non-Tender, Full Range of Motion Respiratory/Chest: No Respiratory Distress, Lungs Clear, Normal Breath Sounds, No Accessory Muscle Use, Chest Non-Tender Cardiovascular: Normal Peripheral Pulses, Regular Rate, Rhythm, No Edema, No Gallop, No JVD, No Murmur, No Rub GI/Abdominal: Normal Bowel Sounds, Soft, Non-Tender, No Organomegaly, No Distention, No Abnormal Bruit, No Mass (Female) Exam: Deferred Rectal (Female) Exam: Deferred Back Exam: Normal Inspection, Full Range of Motion, NT Extremities: Normal Inspection, Normal Range of Motion, Non-Tender, Normal Capillary Refill, No Pedal Edema Neurological: Alert, Normal Mood/Affect, CN II-XII Intact, Normal Cognition, Normal Gait, Normal Reflexes, No Motor/Sensory Deficits, Oriented x 3 Psychiatric: Alert, Normal Affect, Normal Cognition, Normal Mood, Oriented Skin Exam: Warm, Dry, Intact, Normal color COURSE, BEHAVIORAL HEALTH COMP - Course Vital Signs: Last Vital Signs Temp 37.2 C 09/09/18 14:50 Pulse 84 09/09/18 14:50 Resp 16 09/09/18 14:50 BP 85/58 L 09/09/18 14:50 Pulse Ox 99 09/09/18 14:50 Orders, Labs, Meds: Active Orders 24 hr Category Date Time Status CULTURE URINE [RM] Stat Lab 09/09/18 15:05 Received Laboratory Tests 09/09/18 09/09/18 09/09/18 Range/Units 14:58 14:58 14:58 WBC 7.1 (5.0-10.0) 10^3/uL RBC 4.63 (4.2-5.4) 10^6/uL Hgb 13.0 (12.0-16.0) g/dL Hct 39.6 (37.0-47.0) % MCV 85.5 (80-100) fL MCH 28.1 (27.0-34.0) pg MCHC 32.8 L (33.0-35.0) g/dL Plt Count 308 (150-450) 10^3/uL Neut % (Auto) 71.3 (42.2-75.2) % Lymph % (Auto) 19.6 L (20.5-50.1) % Grant % (Auto) 5.8 (2-8) % Eos % (Auto) 2.9 (1.0-3.0) % Baso % (Auto) 0.4 (0.0-1.0) % Sodium 135 (135-145) mmol/L Potassium 4.4 (3.6-5.0) mmol/L Chloride 103 (101-111) mmol/L Carbon Dioxide 22.0 (21.0-31.0) mmol/L Anion Gap 14.4 BUN 20 H (7-18) mg/dL Creatinine 0.8 (0.6-1.3) mg/dL Est Cr Clr Drug Dosing 101.81 mL/min Estimated GFR (MDRD) > 60 BUN/Creatinine Ratio 25.00 Glucose 102 (74-105) mg/dL Calcium 9.5 (8.4-10.2) mg/dl Total Bilirubin 1.1 H (0.2-1.0) mg/dL AST 20 (10-42) IU/L ALT 12 (10-60) IU/L Alkaline Phosphatase 48 (42-121) IU/L Total Protein 8.0 (6.7-8.2) g/dl Albumin 4.3 (3.2-5.5) g/dl Globulin 3.7 Albumin/Globulin Ratio 1.16 Urine Color (YELLOW) Urine Appearance (CLEAR) Urine pH (5.0-9.0) Ur Specific [place] (1.005-1.030) Urine Protein (NEGATIVE) Urine Glucose (UA) (NEGATIVE) Urine Ketones (NEGATIVE) Urine Occult Blood (NEGATIVE) Urine Nitrite (NEGATIVE) Urine Bilirubin (NEGATIVE) Urine Urobilinogen (0.2-1.0) mg/dL Ur Leukocyte Esterase (NEGATIVE) Urine RBC /HPF Urine WBC (0-5/HPF) /HPF Ur Epithelial Cells /HPF Amorphous Sediment (0/HPF) /HPF Urine Bacteria (0-FEW/HPF) /HPF Urine Mucus /LPF Urine HCG, Qual Salicylates < 4 mg/dL Urine Opiates Screen (NEGATIVE) Ur Oxycodone Screen (NEGATIVE) Urine Methadone Screen (NEGATIVE) Acetaminophen < 10 ug/mL Ur Barbiturates Screen (NEGATIVE) U Tricyclic Antidepress (NEGATIVE) Ur Phencyclidine Scrn (NEGATIVE) Ur Amphetamine Screen (NEGATIVE) U Methamphetamines Scrn (NEGATIVE) Urine MDMA Screen (NEGATIVE) U Benzodiazepines Scrn (NEGATIVE) Urine Cocaine Screen (NEGATIVE) U Marijuana (THC) Screen (NEGATIVE) Ethyl Alcohol < 5 mg/dL 09/09/18 09/09/18 09/09/18 Range/Units 15:05 15:05 15:05 WBC (5.0-10.0) 10^3/uL RBC (4.2-5.4) 10^6/uL Hgb (12.0-16.0) g/dL Hct (37.0-47.0) % MCV (80-100) fL MCH (27.0-34.0) pg MCHC (33.0-35.0) g/dL Plt Count (150-450) 10^3/uL Neut % (Auto) (42.2-75.2) % Lymph % (Auto) (20.5-50.1) % Grant % (Auto) (2-8) % Eos % (Auto) (1.0-3.0) % Baso % (Auto) (0.0-1.0) % Sodium (135-145) mmol/L Potassium (3.6-5.0) mmol/L Chloride (101-111) mmol/L Carbon Dioxide (21.0-31.0) mmol/L Anion Gap BUN (7-18) mg/dL Creatinine (0.6-1.3) mg/dL Est Cr Clr Drug Dosing mL/min Estimated GFR (MDRD) BUN/Creatinine Ratio Glucose (74-105) mg/dL Calcium (8.4-10.2) mg/dl Total Bilirubin (0.2-1.0) mg/dL AST (10-42) IU/L ALT (10-60) IU/L Alkaline Phosphatase (42-121) IU/L Total Protein (6.7-8.2) g/dl Albumin (3.2-5.5) g/dl Globulin Albumin/Globulin Ratio Urine Color Yellow (YELLOW) Urine Appearance Slightly cloudy (CLEAR) Urine pH 7.0 (5.0-9.0) Ur Specific [place] 1.020 (1.005-1.030) Urine Protein 30 H (NEGATIVE) Urine Glucose (UA) Negative (NEGATIVE) Urine Ketones 15 H (NEGATIVE) Urine Occult Blood Negative (NEGATIVE) Urine Nitrite Negative (NEGATIVE) Urine Bilirubin Negative (NEGATIVE) Urine Urobilinogen 0.2 (0.2-1.0) mg/dL Ur Leukocyte Esterase Small H (NEGATIVE) Urine RBC 0-5 /HPF Urine WBC 10-20 H (0-5/HPF) /HPF Ur Epithelial Cells Moderate H /HPF Amorphous Sediment Few (0/HPF) /HPF Urine Bacteria Few (0-FEW/HPF) /HPF Urine Mucus Many H /LPF Urine HCG, Qual Negative Salicylates mg/dL Urine Opiates Screen Negative (NEGATIVE) Ur Oxycodone Screen Positive H (NEGATIVE) Urine Methadone Screen Negative (NEGATIVE) Acetaminophen ug/mL Ur Barbiturates Screen Negative (NEGATIVE) U Tricyclic Antidepress Negative (NEGATIVE) Ur Phencyclidine Scrn Negative (NEGATIVE) Ur Amphetamine Screen Negative (NEGATIVE) U Methamphetamines Scrn Negative (NEGATIVE) Urine MDMA Screen Negative (NEGATIVE) U Benzodiazepines Scrn Negative (NEGATIVE) Urine Cocaine Screen Negative (NEGATIVE) U Marijuana (THC) Screen Negative (NEGATIVE) Ethyl Alcohol mg/dL Medications Discontinued Medications Generic Name Dose Route Start Last Admin Trade Name Freq PRN Reason Stop Dose Admin Cephalexin 500 mg 09/09/18 16:11 Keflex PO 09/09/18 16:12 ONETIME ONE Re-Assessment/Re-Exam: Luis John from the [facility] visited with the patient and family , established a plan with the family and documented his visit while in the ED. Departure - Departure Time of Disposition: 16:13 Disposition: Home, Self-Care 01 Condition: Fair Clinical Impression: Suicidal ideation UTI (urinary tract infection) Qualifiers: Urinary tract infection type: site unspecified Hematuria presence: with hematuria Qualified Code(s): N39.0 - Urinary tract infection, site not specified ; R31.9 - Hematuria, unspecified - Discharge Information *PRESCRIPTION DRUG MONITORING PROGRAM REVIEWED*: Not Applicable *COPY OF PRESCRIPTION DRUG MONITORING REPORT IN PATIENT GINO: Not Applicable Instructions: Suicidal Feelings: How to Help Yourself Forms: ED Department Discharge Care Plan Goals: The patient and family were advised of the examination and lab results during the visit. The patient was given an oral dose of Keflex while in the ED and discharged with a script for Keflex (500 mg) to take 1 by mouth 2 times per day for 5 days. The patient will be following up with her counselor tomorrow morning for continued evaluation and further management. The patient will be staying with her mother until the appointment tomorrow. If the patient has any additional symptoms or concerns, the patient should either return to the emergency department or visit her primary care facility. - My Orders Last 24 Hours: My Active Orders 09/09/18 15:05 CULTURE URINE [RM] Stat - Assessment/Plan Last 24 Hours: My Active Orders 09/09/18 15:05 CULTURE URINE [RM] Stat I have read and agree with the documentation that has been completed regarding this visit. By signing this record, I attest that the documentation was completed in my physical presence and is an accurate record of the encounter.
== END 2018-09-09 16:25 | disposition home or self-care (01) ==
LOC: DL.ED 14:20
DX: F32.9 Major depressive disorder, single episode, unspecified (principal); N39.0 Urinary tract infection, site not specified; F17.210 Nicotine dependence, cigarettes, uncomplicated; Z79.899 Other long term (current) drug therapy
CPT/HCPCS: 36415; 80053; 80305-QW; 81001; 81025; 85025; 87086; 99285; A9270-GY; G0480

== ENCOUNTER 2019-04-28 23:50 | Emergency (ER) | payer MEDICAID ==
--- NOTE | 2019-04-28 23:59 | EDM.PDOCBH ---
ED HPI GENERAL MEDICAL PROBLEM - General Chief Complaint: Drug or Alcohol Abuse Stated Complaint: AMBULANCE Time Seen by Provider: 04/28/19 23:54 Source of Information: Reports: Patient, EMS History Limitations: Reports: No Limitations - History of Present Illness INITIAL COMMENTS - FREE TEXT/NARRATIVE: This 23 yo female patient was brought to the ED by [facility] due to suicidal ideation , intentional medication overdose (patient reports she took 5 x 300 mg [place]) and alcohol consumption (1/2 liter of Vodka and 1 1/2 cans of marques). The patient did contact her counselor regarding feelings and actions. A call was placed to poison control. Poison control advised to have the patient transferred to a facility that can check lithium levels. Onset Date: 04/28/19 Onset Time: 23:30 Duration: Constant Location: Reports: Other Quality: Reports: Other Severity: Severe Improves with: Reports: None Worsens with: Reports: None Context: Reports: Other Associated Symptoms: Reports: No Other Symptoms - Related Data Allergies Allergy/AdvReac Type Severity Reaction Status Date / Time No Known Allergies Allergy Verified 03/31/19 20:17 Home Meds: Home Meds DULoxetine HCl [Cymbalta] 60 mg PO DAILY 09/09/18 [History] Multivitamin [Multi-Day Vitamins] 1 tab PO DAILY 09/09/18 [History] traZODone HCl [Trazodone HCl] 50 mg PO BEDTIME 09/09/18 [History] ARIPiprazole [Abilify] 10 mg PO DAILY 03/31/19 [History] Naltrexone Microspheres [Vivitrol] 380 mg IM ASDIRECTED 03/31/19 [History] Past Medical History HEENT 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: None Cardiovascular 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: None Respiratory 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: Asthma Other Respiratory History: just as a child. no longer troubles pt. 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, Recurrent [employer]OR 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: Musculoskeletal 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: None Neurological 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: None Psychiatric 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: Depression, Emotional Problems, Suicide Attempt, Suicidal Ideation Endocrine/Metabolic 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: Other (See Below) Other Endocrine/Metabolic History: enlarged pituitary gland Hematologic 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: None Immunologic 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: None Oncologic (Cancer) 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: None Dermatologic 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: None - Infectious Disease History Infectious Disease 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: Chicken Pox - Past Surgical History Head Surgeries/Procedures: Reports: None HEENT Surgical 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: Other (See Below) Other HEENT Surgeries/Procedures: wisdom teeth GI Surgical 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: Hernia Repair/Other, Other (See Below) Other GI Surgeries/Procedures: due to ulcerative colitis flare, patient had 1\3 of her colon removed. Umbilical hernia repaired. Social & Family History - Family History Family Medical History: Noncontributory - Caffeine Use Caffeine Use: Reports: Coffee, Energy Drinks, Soda Caffeine Use Comment: coffee in the morning. - Living Situation & Occupation Living situation: Reports: with Family ED ROS GENERAL - Review of Systems Review Of Systems: ROS reveals no pertinent complaints other than HPI. ED EXAM, BEHAVIORAL HEALTH - Physical Exam Exam: See Below Exam Limited By: No Limitations General Appearance: Alert, WD/WN, Moderate Distress Eye Exam: Bilateral Eye: EOMI, Normal Inspection, PERRL Ears: Normal External Exam, Normal Canal, Hearing Grossly Normal, Normal TMs Nose: Normal Inspection, Normal Mucosa, No Blood Throat/Mouth: Normal Inspection, Normal Lips, Normal Teeth, Normal Gums, Normal Oropharynx, Normal Voice, No Airway Compromise Head: Atraumatic, Normocephalic Neck: Normal Inspection, Supple, Non-Tender, Full Range of Motion Respiratory/Chest: No Respiratory Distress, Lungs Clear, Normal Breath Sounds, No Accessory Muscle Use, Chest Non-Tender Cardiovascular: Normal Peripheral Pulses, Regular Rate, Rhythm, No Edema, No Gallop, No JVD, No Murmur, No Rub GI/Abdominal: Normal Bowel Sounds, Soft, Non-Tender, No Organomegaly, No Distention, No Abnormal Bruit, No Mass (Female) Exam: Deferred Rectal (Female) Exam: Deferred Back Exam: Normal Inspection, Full Range of Motion, NT Extremities: Normal Inspection, Normal Range of Motion, Non-Tender, Normal Capillary Refill, No Pedal Edema Neurological: Alert, CN II-XII Intact, Normal Cognition, Oriented x 3 Psychiatric: Alert, Oriented, Depressed Mood, Flat Affect, Tearful Skin Exam: Warm, Dry, Intact, Normal color, No rash COURSE, BEHAVIORAL HEALTH COMP - Course Vital Signs: Last Vital Signs Temp 37.3 C 04/28/19 23:57 Pulse 92 04/28/19 23:57 Resp 16 04/28/19 23:57 BP 111/77 04/28/19 23:57 Pulse Ox 100 04/28/19 23:57 Orders, Labs, Meds: Active Orders 24 hr Category Date Time Status EKG Documentation Completion [RC] URGENT Care 04/28/19 23:53 Ordered ACETAMINOPHEN [CHEM] Stat Lab 04/28/19 23:53 Ordered COMPREHENSIVE METABOLIC PN,CMP [CHEM] Urgent Lab 04/28/19 23:53 Ordered DRUG SCREEN URINE BIORAD [URCHEM] Stat Lab 04/28/19 23:53 Ordered ETHANOL BLOOD MEDICAL [CHEM] Stat Lab 04/28/19 23:53 Ordered HCG QUALITATIVE,URINE [URCHEM] Stat Lab 04/28/19 23:53 Ordered SALICYLATE [CHEM] Stat Lab 04/28/19 23:53 Ordered UA RFX MARI AND CULT IF INDIC [URIN] Stat Lab 04/28/19 23:53 Ordered Sodium Chloride 0.9% [Normal Saline] 1,000 ml Med 04/29/19 00:21 Ordered IV .BOLUS Medication Orders Sodium Chloride (Normal Saline) 1,000 mls @ 999 mls/hr IV .BOLUS ONE Stop: 04/29/19 01:21 Laboratory Tests 04/28/19 Range/Units 23:59 WBC 8.2 (5.0-10.0) 10^3/uL RBC 4.91 (4.2-5.4) 10^6/uL Hgb 13.9 D (12.0-16.0) g/dL Hct 42.2 (37.0-47.0) % MCV 85.9 D (80-100) fL MCH 28.3 (27.0-34.0) pg MCHC 32.9 L (33.0-35.0) g/dL Plt Count 414 D (150-450) 10^3/uL Neut % (Auto) 53.1 (42.2-75.2) % Lymph % (Auto) 38.9 (20.5-50.1) % Cass[place] % (Auto) 6.9 (2-8) % Eos % (Auto) 0.7 L (1.0-3.0) % Baso % (Auto) 0.4 (0.0-1.0) % Medications Generic Name Dose Route Start Last Admin Trade Name Freq PRN Reason Stop Dose Admin Sodium Chloride 1,000 mls @ 999 mls/hr 04/29/19 00:21 Normal Saline IV 04/29/19 01:21 .BOLUS ONE Discontinued Medications Generic Name Dose Route Start Last Admin Trade Name Faustino PRN Reason Stop Dose Admin Ondansetron HCl 4 mg 04/29/19 00:21 Zofran IV 04/29/19 00:22 ONETIME ONE Re-Assessment/Re-Exam: Transport to [facility] was necessary due to the ability of their lab to draw [place] levels. Departure - Departure Time of Disposition: 00:23 Disposition: DC/Tfer to Acute Hospital 02 Condition: Serious Clinical Impression: Alcohol use Suicidal overdose Qualifiers: Encounter type: initial encounter Qualified Code(s): T50.902A - Poisoning by unspecified drugs, medicaments and biological substances, intentional self-harm , initial encounter Medication overdose Qualifiers: Encounter type: initial encounter Injury intent: intentional self-harm Qualified Code(s): T50.902A - Poisoning by unspecified drugs, medicaments and biological substances, intentional self-harm, initial encounter - Discharge Information *PRESCRIPTION DRUG MONITORING PROGRAM REVIEWED*: Not Applicable *COPY OF PRESCRIPTION DRUG MONITORING REPORT IN PATIENT GINO: Not Applicable Forms: Interfacility Transfer EMTALA Care Plan Goals: Discussed the patient's history, examination and poison control suggested treatments with Dr. Hawkins ([facility]). Dr. Hawkins accepted the patient for continued evaluation and management. The patient will be transported by [facility]. - My Orders Last 24 Hours: My Active Orders 04/28/19 23:53 EKG Documentation Completion [RC] URGENT ACETAMINOPHEN [CHEM] Stat COMPREHENSIVE METABOLIC PN,CMP [CHEM] Urgent DRUG SCREEN URINE BIORAD [URCHEM] Stat ETHANOL BLOOD MEDICAL [CHEM] Stat HCG QUALITATIVE,URINE [URCHEM] Stat SALICYLATE [CHEM] Stat UA RFX MARI AND CULT IF INDIC [URIN] Stat 04/29/19 00:21 Sodium Chloride 0.9% [Normal Saline] 1,000 ml IV .BOLUS - Assessment/Plan Last 24 Hours: My Active Orders 04/28/19 23:53 EKG Documentation Completion [RC] URGENT ACETAMINOPHEN [CHEM] Stat COMPREHENSIVE METABOLIC PN,CMP [CHEM] Urgent DRUG SCREEN URINE BIORAD [URCHEM] Stat ETHANOL BLOOD MEDICAL [CHEM] Stat HCG QUALITATIVE,URINE [URCHEM] Stat SALICYLATE [CHEM] Stat UA RFX MARI AND CULT IF INDIC [URIN] Stat 04/29/19 00:21 Sodium Chloride 0.9% [Normal Saline] 1,000 ml IV .BOLUS
[2019-04-29 00:04] VITALS: BP 111/77; PULSE 92
[2019-04-29] MEDS ORDERED: Sodium Chloride 0.9% 1,000 ML IV ONE (00:21)
[2019-04-29] MEDS ORDERED: Ondansetron 4 MG/2 ML SDV IV ONE (00:21)
[2019-04-29 00:28] LABS: ANION GAP 13.2; CHLORIDE,CL 102 mmol/L (101-111); SODIUM,NA 141 mmol/L (135-145)
[2019-04-29 00:29] LABS: ACETAMINOPHEN < 10 ug/mL
== END 2019-04-29 01:00 ==
LOC: DL.ED 23:50
DX: T56.892A Toxic effect of other metals, intentional self-harm, initial encounter (principal); J45.909 Unspecified asthma, uncomplicated; F32.9 Major depressive disorder, single episode, unspecified; Z72.89 Other problems related to lifestyle; Z79.899 Other long term (current) drug therapy
CPT/HCPCS: 36415; 80053; 80320; 80329; 85025; 93005; 96374; 99285; J2405; J7030; G0480

== ENCOUNTER 2019-09-22 14:35 | Emergency (ER) | payer BC, MEDICAID ==
[2019-09-22 16:06] VITALS: BP 122/86; PULSE 110
--- NOTE | 2019-09-22 16:10 | EDM.PDOC ---
Scribed by Katelyn Farley 09/22/19 1610 for Ryan Ervin MD ED HPI GENERAL MEDICAL PROBLEM - General Chief Complaint: Fever Stated Complaint: FLU LIKE SYMPTOMS Time Seen by Provider: 09/22/19 15:30 Source of Information: Reports: Patient, RN, RN Notes Reviewed History Limitations: Reports: No Limitations - History of Present Illness INITIAL COMMENTS - FREE TEXT/NARRATIVE: Patient presents to ER by POV stating she was recently exposed to someone with influenza and has developed fever, cough, and body aches that began on Monday. She also has diarrhea. Onset Date: 09/19/19 Duration: Getting Worse Location: Reports: Generalized Quality: Reports: Ache Severity: Moderate Improves with: Reports: None Worsens with: Reports: None Associated Symptoms: Reports: No Other Symptoms Generalized Pain Score (Numeric/FACES): 8 - Related Data Allergies Allergy/AdvReac Type Severity Reaction Status Date / Time No Known Allergies Allergy Verified 03/31/19 20:17 Home Meds: Home Meds DULoxetine HCl [Cymbalta] 60 mg PO DAILY 09/09/18 [History] Multivitamin [Multi-Day Vitamins] 1 tab PO DAILY 09/09/18 [History] traZODone HCl [Trazodone HCl] 50 mg PO BEDTIME 09/09/18 [History] ARIPiprazole [Abilify] 10 mg PO DAILY 03/31/19 [History] Naltrexone Microspheres [Vivitrol] 380 mg IM ASDIRECTED 03/31/19 [History] Past Medical History HEENT 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: None Cardiovascular 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: None Respiratory 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: Asthma Other Respiratory History: just as a child. no longer troubles pt. 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: Musculoskeletal 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: None Neurological 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: None Psychiatric 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: Depression, Emotional Problems, Suicide Attempt, Suicidal Ideation Endocrine/Metabolic 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: Other (See Below) Other Endocrine/Metabolic History: enlarged pituitary gland Hematologic 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: None Immunologic 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: None Oncologic (Cancer) 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: None Dermatologic 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: None - Infectious Disease History Infectious Disease 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: Chicken Pox - Past Surgical History Head Surgeries/Procedures: Reports: None HEENT Surgical 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: Other (See Below) Other HEENT Surgeries/Procedures: wisdom teeth GI Surgical 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: Hernia Repair/Other, Other (See Below) Other GI Surgeries/Procedures: due to ulcerative colitis flare, patient had 1\3 of her colon removed. Umbilical hernia repaired. Social & Family History - Family History Family Medical History: Noncontributory - Caffeine Use Caffeine Use: Reports: Coffee, Energy Drinks, Soda Caffeine Use Comment: coffee in the morning. - Living Situation & Occupation Living situation: Reports: with Family ED ROS GENERAL - Review of Systems Review Of Systems: Comprehensive ROS is negative, except as noted in HPI. ED EXAM, GENERAL - Physical Exam Exam: See Below Exam Limited By: No Limitations General Appearance: Alert, WD/WN, No Apparent Distress Eye Exam: Bilateral Eye: Normal Inspection Ears: Normal External Exam, Normal Canal, Hearing Grossly Normal, Normal TMs Nose: Normal Inspection, Normal Mucosa, No Blood, Nasal Drainage Throat/Mouth: Normal Inspection, Normal Lips, Normal Teeth, Normal Gums, Normal Oropharynx, Normal Voice, No Airway Compromise Head: Atraumatic, Normocephalic Neck: Normal Inspection, Supple, Non-Tender, Full Range of Motion Respiratory/Chest: No Respiratory Distress, Lungs Clear, Normal Breath Sounds, No Accessory Muscle Use, Chest Non-Tender Cardiovascular: Normal Peripheral Pulses, Regular Rate, Rhythm, No Edema, Tachycardia GI/Abdominal: Normal Bowel Sounds, Soft, Non-Tender, No Organomegaly, No Distention, No Abnormal Bruit, No Mass Back Exam: Normal Inspection Extremities: Normal Inspection Neurological: Alert, Oriented, No Motor/Sensory Deficits Psychiatric: Normal Affect, Normal Mood Skin Exam: Warm, Dry, Intact, Normal Color, No Rash Course - Vital Signs Last Recorded V/S: Last Vital Signs Temp 97.8 F 09/22/19 16:04 Pulse 110 H 09/22/19 16:04 Resp 18 09/22/19 16:04 BP 122/86 09/22/19 16:04 Pulse Ox 96 09/22/19 16:04 - Orders/Labs/Meds Orders: Active Orders 24 hr Category Date Time Status CULTURE STREP A CONFIRMATION [RM] Stat Lab 09/22/19 14:55 Results STREP SCRN A RAPID W CULT CONF [RM] Stat Lab 09/22/19 14:55 Results Labs: Rapid strep: Negative. Influenza A and B: Negative. Departure - Departure Time of Disposition: 16:01 Disposition: Home, Self-Care 01 Condition: Good Clinical Impression: Exposure to influenza, Influenza - Discharge Information *PRESCRIPTION DRUG MONITORING PROGRAM REVIEWED*: Not Applicable *COPY OF PRESCRIPTION DRUG MONITORING REPORT IN PATIENT GINO: Not Applicable Instructions: Influenza, Adult Forms: ED Department Discharge Additional Instructions: RX: Tamiflu 75mg. Use over the counter Imodium for the diarrhea. Rest. Drink plenty of fluid/water. Follow up in clinic with your physician if not improving in 1 week. Sepsis Event Note - Focused Exam Vital Signs: Vital Signs Temp Pulse Resp BP Pulse Ox 09/22/19 16:04 97.8 F 110 H 18 122/86 96 Date Exam was Performed: 09/22/19 Time Exam was Performed: 16:07 - My Orders Last 24 Hours: My Active Orders 09/22/19 14:55 CULTURE STREP A CONFIRMATION [RM] Stat STREP SCRN A RAPID W CULT CONF [RM] Stat - Assessment/Plan Last 24 Hours: My Active Orders 09/22/19 14:55 CULTURE STREP A CONFIRMATION [RM] Stat STREP SCRN A RAPID W CULT CONF [RM] Stat I have read and agree with the documentation that has been completed regarding this visit. By signing this record, I attest that the documentation was completed in my physical presence and is an accurate record of the encounter.
== END 2019-09-22 16:13 | disposition home or self-care (01) ==
LOC: DL.ED 14:35
DX: J11.1 Influenza due to unidentified influenza virus with other respiratory manifestations (principal)
CPT/HCPCS: 87081; 87430; 87804; 99283

== ENCOUNTER 2019-11-12 11:16 | Emergency (ER) | payer MEDICAID ==
[2019-11-12 11:22] VITALS: BP 121/68; PULSE 88
--- NOTE | 2019-11-12 11:33 | EDM.PDOC ---
ED HPI GENERAL MEDICAL PROBLEM - General Chief Complaint: Abdominal Pain Stated Complaint: ABDOMINAL PAIN Time Seen by Provider: 11/12/19 11:33 Source of Information: Reports: Patient, RN, RN Notes Reviewed History Limitations: Reports: No Limitations - History of Present Illness INITIAL COMMENTS - FREE TEXT/NARRATIVE: Patient presents to ER with complaint of severe abdominal pain that began yesterday morning and has progressively gotten worse. Patient denies nausea or vomiting, diarrhea. States her bowel movements have been hard and small, green. Although patient states she does not feel constipated. Patient states she does still have her appendix and her gallbladder. Patient states she has a history of ulcerative colitis, and has had much of her colon removed. Patient admits to fever and chills yesterday and today. Denies any recent illness, cough, sore throat. Patient states when she gets ill she feels very weak. Patient reports history of pituitary gland impairment. Onset: Gradual Onset Date: 11/11/19 Duration: Constant, Getting Worse Location: Reports: Abdomen Quality: Reports: Stabbing Severity: Moderate Improves with: Reports: None Worsens with: Reports: None Abdomen Pain Score (Numeric/FACES): 10 - Related Data Allergies Allergy/AdvReac Type Severity Reaction Status Date / Time No Known Allergies Allergy Verified 11/12/19 11:22 Home Meds: Home Meds DULoxetine HCl [Cymbalta] 60 mg PO DAILY 09/09/18 [History] Multivitamin [Multi-Day Vitamins] 1 tab PO DAILY 09/09/18 [History] traZODone HCl [Trazodone HCl] 50 mg PO BEDTIME 09/09/18 [History] ARIPiprazole [Abilify] 10 mg PO DAILY 03/31/19 [History] Naltrexone Microspheres [Vivitrol] 380 mg IM ASDIRECTED 03/31/19 [History] Past Medical History HEENT 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: None Cardiovascular 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: None Respiratory 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: Asthma Other Respiratory History: just as a child. no longer troubles pt. 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: Musculoskeletal 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: None Neurological 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: None Psychiatric 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: Depression, Emotional Problems, Suicide Attempt, Suicidal Ideation Endocrine/Metabolic 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: Other (See Below) Other Endocrine/Metabolic History: enlarged pituitary gland Hematologic 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: None Immunologic 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: None Oncologic (Cancer) 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: None Dermatologic 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: None - Infectious Disease History Infectious Disease 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: Chicken Pox - Past Surgical History Head Surgeries/Procedures: Reports: None HEENT Surgical 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: Other (See Below) Other HEENT Surgeries/Procedures: wisdom teeth GI Surgical 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: Hernia Repair/Other, Other (See Below) Other GI Surgeries/Procedures: due to ulcerative colitis flare, patient had 1\3 of her colon removed. Umbilical hernia repaired. Social & Family History - Family History Family Medical History: Noncontributory - Tobacco Use Smoking Status *Q: Current Every Day Smoker Years of Tobacco use: 6 Packs/Tins Daily: 0.5 - Caffeine Use Caffeine Use: Reports: None Caffeine Use Comment: coffee in the morning. - Recreational Drug Use Recreational Drug Use: Yes Drug Use in Last 12 Months: Yes Recreational Drug Type: Reports: Marijuana/Hashish - Living Situation & Occupation Living situation: Reports: with Family ED ROS GENERAL - Review of Systems Review Of Systems: Comprehensive ROS is negative, except as noted in HPI. ED EXAM, GI/ABD - Physical Exam Exam: See Below Exam Limited By: No Limitations General Appearance: Alert, WD/WN, No Apparent Distress Eyes: Bilateral: Normal Appearance, EOMI Ears: Normal External Exam, Hearing Grossly Normal Nose: Normal Inspection Throat/Mouth: Normal Inspection, Normal Voice, No Airway Compromise Head: Atraumatic, Normocephalic Neck: Normal Inspection, Supple, Non-Tender, Full Range of Motion Respiratory/Chest: No Respiratory Distress, Lungs Clear, Normal Breath Sounds, No Accessory Muscle Use, Chest Non-Tender Cardiovascular: Normal Peripheral Pulses, Regular Rate, Rhythm, No Edema, No Gallop, No JVD, No Murmur, No Rub GI/Abdominal Exam: Normal Bowel Sounds, Soft, Tender (Female) Exam: Deferred Rectal (Female) Exam: Deferred Back Exam: Normal Inspection, Full Range of Motion, NT Extremities: Normal Inspection, Normal Range of Motion, Non-Tender, Normal Capillary Refill, No Pedal Edema Neurological: Alert, Oriented, CN II-XII Intact, Normal Cognition, Normal Gait, Normal Reflexes, No Motor/Sensory Deficits Psychiatric: Normal Affect, Normal Mood Skin Exam: Warm, Dry, Intact, Normal Color, No Rash Lymphatic: No Adenopathy Course - Vital Signs Last Recorded V/S: Last Vital Signs Temp 98 F 11/12/19 11:19 Pulse 88 11/12/19 11:19 Resp 16 11/12/19 11:19 BP 121/68 11/12/19 11:19 Pulse Ox 100 11/12/19 11:19 - Orders/Labs/Meds Orders: Active Orders 24 hr Category Date Time Status Peripheral IV Care [RC] . DIRECTED Care 11/12/19 11:42 Active Abdomen 2V AP Flat Upright [CR] Urgent Exams 11/12/19 12:32 Ordered CULTURE URINE [RM] Stat Lab 11/12/19 11:27 Received Labs: Laboratory Tests 11/12/19 11/12/19 11/12/19 Range/Units 11:27 11:27 11:53 WBC 5.6 (5.0-10.0) 10^3/uL RBC 4.28 (4.2-5.4) 10^6/uL Hgb 12.2 D (12.0-16.0) g/dL Hct 37.1 (37.0-47.0) % MCV 86.7 (80-100) fL MCH 28.5 (27.0-34.0) pg MCHC 32.9 L (33.0-35.0) g/dL Plt Count 315 D (150-450) 10^3/uL Neut % (Auto) 48.6 (42.2-75.2) % Lymph % (Auto) 40.9 (20.5-50.1) % [place] % (Auto) 8.1 H (2-8) % Eos % (Auto) 2.0 (1.0-3.0) % Baso % (Auto) 0.4 (0.0-1.0) % ESR (0-20) mm/hr Sodium (136-145) mmol/L Potassium (3.5-5.1) mmol/L Chloride (98-107) mmol/L Carbon Dioxide (21-32) mmol/L Anion Gap (7-13) mEq/L BUN (7-18) mg/dL Creatinine (0.55-1.02) mg/dL Est Cr Clr Drug Dosing mL/min Estimated GFR (MDRD) BUN/Creatinine Ratio (No establ ref range) Glucose (74-99) mg/dL Calcium (8.5-10.1) mg/dL Total Bilirubin (0.2-1.0) mg/dL AST (15-37) U/L ALT (14-59) U/L Alkaline Phosphatase (46-116) U/L C-Reactive Protein (0.0-0.9) mg/dL Total Protein (6.4-8.2) g/dL Albumin (3.4-5.0) g/dL Globulin Albumin/Globulin Ratio Amylase (25-115) U/L Lipase (73-393) U/L Urine Color Yellow (YELLOW) Urine Appearance Slightly cloudy (CLEAR) Urine pH 5.5 (5.0-9.0) Ur Specific [place] >= 1.030 (1.005-1.030) Urine Protein Negative (NEGATIVE) Urine Glucose (UA) Negative (NEGATIVE) Urine Ketones Negative (NEGATIVE) Urine Occult Blood Negative (NEGATIVE) Urine Nitrite Negative (NEGATIVE) Urine Bilirubin Negative (NEGATIVE) Urine Urobilinogen 0.2 (0.2-1.0) mg/dL Ur Leukocyte Esterase Trace H (NEGATIVE) Urine RBC 0-5 /HPF Urine WBC 5-10 H (0-5/HPF) /HPF Ur Epithelial Cells Moderate H (NOT SEEN) /HPF Amorphous Sediment Few (NOT SEEN) /HPF Urine Bacteria Few (0-FEW/HPF) /HPF Urine Mucus Few H (NOT SEEN) /LPF Urine HCG, Qual Negative 11/12/19 11/12/19 Range/Units 11:53 11:53 WBC (5.0-10.0) 10^3/uL RBC (4.2-5.4) 10^6/uL Hgb (12.0-16.0) g/dL Hct (37.0-47.0) % MCV (80-100) fL MCH (27.0-34.0) pg MCHC (33.0-35.0) g/dL Plt Count (150-450) 10^3/uL Neut % (Auto) (42.2-75.2) % Lymph % (Auto) (20.5-50.1) % [place] % (Auto) (2-8) % Eos % (Auto) (1.0-3.0) % Baso % (Auto) (0.0-1.0) % ESR 3 (0-20) mm/hr Sodium 139 (136-145) mmol/L Potassium 4.0 (3.5-5.1) mmol/L Chloride 104 (98-107) mmol/L Carbon Dioxide 24 (21-32) mmol/L Anion Gap 15.0 H (7-13) mEq/L BUN 20 H (7-18) mg/dL Creatinine 1.01 (0.55-1.02) mg/dL Est Cr Clr Drug Dosing 81.18 mL/min Estimated GFR (MDRD) > 60 BUN/Creatinine Ratio 19.8 (No establ ref range) Glucose 92 (74-99) mg/dL Calcium 8.4 L (8.5-10.1) mg/dL Total Bilirubin 1.0 (0.2-1.0) mg/dL AST 17 (15-37) U/L ALT 17 (14-59) U/L Alkaline Phosphatase 50 (46-116) U/L C-Reactive Protein < 0.2 (0.0-0.9) mg/dL Total Protein 7.3 (6.4-8.2) g/dL Albumin 3.5 (3.4-5.0) g/dL Globulin 3.8 Albumin/Globulin Ratio 0.9 Amylase 102 (25-115) U/L Lipase 117 (73-393) U/L Urine Color (YELLOW) Urine Appearance (CLEAR) Urine pH (5.0-9.0) Ur Specific [place] (1.005-1.030) Urine Protein (NEGATIVE) Urine Glucose (UA) (NEGATIVE) Urine Ketones (NEGATIVE) Urine Occult Blood (NEGATIVE) Urine Nitrite (NEGATIVE) Urine Bilirubin (NEGATIVE) Urine Urobilinogen (0.2-1.0) mg/dL Ur Leukocyte Esterase (NEGATIVE) Urine RBC /HPF Urine WBC (0-5/HPF) /HPF Ur Epithelial Cells (NOT SEEN) /HPF Amorphous Sediment (NOT SEEN) /HPF Urine Bacteria (0-FEW/HPF) /HPF Urine Mucus (NOT SEEN) /LPF Urine HCG, Qual - Radiology Interpretation Free Text/Narrative:: Abdominal flat and upright: FINDINGS: Gastrointestinal tract: The small bowel is not significantly air-distended or with air-fluid levels. Air and stool are present within large bowel. The rectum is fairly distended with stool up to 8 cm in caliber. Intraperitoneal space: No free air is evident. Bones/joints: Unremarkable for age. IMPRESSION: Nonspecific bowel gas pattern. Rectum fairly distended with stool up to 8 cm in caliber. Thank you for allowing us to participate in the care of your patient. Dictated and Authenticated by: Luis Gil MD 11/12/2019 12:52 PM Central Time ([place] & [place]) See rad report Departure - Departure Time of Disposition: 13:11 Disposition: Home, Self-Care 01 Condition: Fair Clinical Impression: Bacterial vaginosis Abdominal pain Qualifiers: Abdominal location: generalized Qualified Code(s): R10.84 - Generalized abdominal pain Constipation Qualifiers: Constipation type: slow transit constipation Qualified Code(s): K59.01 - Slow transit constipation Urinary tract infection Qualifiers: Urinary tract infection type: site unspecified Hematuria presence: with hematuria Qualified Code(s): N39.0 - Urinary tract infection, site not specified Ulcerative colitis Qualifiers: Ulcerative colitis location: unspecified ulcerative colitis location Digestive disease complication type: without complication Qualified Code(s): K51.90 - Ulcerative colitis, unspecified, without complications - Discharge Information *PRESCRIPTION DRUG MONITORING PROGRAM REVIEWED*: No *COPY OF PRESCRIPTION DRUG MONITORING REPORT IN PATIENT GINO: No Instructions: Bacterial Vaginosis, [id number], Abdominal Pain, Adult, Easy-to -Read, High-Fiber Diet, Antibiotic Medicine, Adult, [id number], Urinary Tract Infection, Adult, [id number], Constipation, Adult, [id number], Hand Washing , [id number] Forms: ED Department Discharge Additional Instructions: Drink plenty of water May use over the counter milk of magnesia for constipation RX: Macrobid, Metronidazole Follow up with your primary care facility May use Tylenol and/or Ibuprofen as directed for pain Sepsis Event Note - Evaluation Sepsis Screening Result: No Definite Risk - Focused Exam Vital Signs: Vital Signs Temp Pulse Resp BP Pulse Ox 11/12/19 11:19 98 F 88 16 121/68 100 Date Exam was Performed: 11/12/19 Time Exam was Performed: 13:11 - My Orders Last 24 Hours: My Active Orders 11/12/19 11:27 CULTURE URINE [RM] Stat 11/12/19 11:42 Peripheral IV Care [RC] . DIRECTED 11/12/19 12:32 Abdomen 2V AP Flat Upright [CR] Urgent - Assessment/Plan Last 24 Hours: My Active Orders 11/12/19 11:27 CULTURE URINE [RM] Stat 11/12/19 11:42 Peripheral IV Care [RC] . DIRECTED 11/12/19 12:32 Abdomen 2V AP Flat Upright [CR] Urgent
[2019-11-12 12:23] LABS: CHLORIDE,CL 104 mmol/L (98-107); SODIUM,NA 139 mmol/L (136-145)
== END 2019-11-12 13:21 | disposition home or self-care (01) ==
LOC: DL.ED 11:16
DX: K51.90 Ulcerative colitis, unspecified, without complications (principal); N39.0 Urinary tract infection, site not specified; K59.01 Slow transit constipation; N76.0 Acute vaginitis; B97.89 Other viral agents as the cause of diseases classified elsewhere; F32.9 Major depressive disorder, single episode, unspecified; F17.210 Nicotine dependence, cigarettes, uncomplicated; Z79.899 Other long term (current) drug therapy
CPT/HCPCS: 36415; 74019; 80053; 81001; 81025; 82150; 83690; 85025; 85651; 86140; 87086; 99284

== ENCOUNTER 2020-01-31 05:42 | Day surgery (SDC) | payer MEDICAID ==
[2020-01-31] MEDS ORDERED: Midazolam 1 MG/ML 2 ML SDV IV ONE ×5 (05:43→06:40)
[2020-01-31] MEDS ORDERED: fentaNYL 100 MCG/2 ML SDV IV ONE ×3 (05:43→06:36)
[2020-01-31] MEDS ORDERED: Sodium Chloride 0.9% 10 ML Syringe FLUSH PRN (06:00)
[2020-01-31] MEDS ORDERED: Dextrose 5%-0.45% NaCl 1,000 ML IV SCH (06:00)
[2020-01-31] MEDS ORDERED: Midazolam 1 MG/ML 2 ML SDV ONE (06:16)
[2020-01-31] MEDS ORDERED: fentaNYL 100 MCG/2 ML SDV ONE (06:16)
--- NOTE | 2020-01-31 08:02 | OR ---
DATE: 01/31/2020 PROCEDURES: 1. Total colonoscopy. 2. Multiple pinch biopsies. INSTRUMENT USED: PCF-H190DL Olympus videocolonoscope. PREMEDICATIONS: Fentanyl 100 mcg intravenous and Versed 3 mg intravenous. The procedure was done under pulse oximetry, BP recording, and cardiac monitoring. INDICATION: The patient with a history of longstanding ulcerative colitis and status post colon resection. Colonoscopic examination is done for detection of any polypoid lesions and removal, biopsies to be obtained for any evidence of dysplasia, endoscopic hemostasis therapy if needed. DESCRIPTION OF PROCEDURE: Initial rectal exam was unremarkable. Rigid anoscopy was normal. The colonoscope was passed with ease. Photograph was taken of the normal-appearing rectum. The scope was passed with ease up to the area of surgical anastomosis. Photographs were taken of the cecum. No bleeding was noted from any of the visualized areas at the commencement of the examination. There was a large amount of mostly liquid fecal material that had to be aspirated. Bowel preparation scale 2 in all the regions, total score 6. No stricture. No vascular ectasia. No large isolated ulcerations were seen. No evidence of diffuse inflammatory bowel disease in the form of friability, contact bleeding, or ulcerations. No polyp or tumor mass was identified. Probing the proximal sides of folds and flexures using adequate distention and clearing up the stool material, withdrawal of the scope was made. Four-quadrant biopsies were taken at 10 cm distance apart and collected into bags; #1 cecum, #2 descending colon, and #3 rectosigmoid; and sent for any histopathologic evidence of dysplasia. No bleeding was noted from any of the visualized areas at the completion of examination. IMPRESSION: Normal study. The patient tolerated the procedure well. MODL /[id number]
[2020-01-31 12:36] VITALS: PULSE 57
[2020-01-31 12:37] VITALS: BP 122/77
== END 2020-01-31 09:19 | disposition home or self-care (01) ==
LOC: DL.ENDO 05:42
PROVIDERS: ATTEND Internal Medicine Gastroenterology
DX: Z12.11 Encounter for screening for malignant neoplasm of colon (principal); K52.9 Noninfective gastroenteritis and colitis, unspecified; F17.210 Nicotine dependence, cigarettes, uncomplicated; Z90.49 Acquired absence of other specified parts of digestive tract; Z87.19 Personal history of other diseases of the digestive system; Z86.59 Personal history of other mental and behavioral disorders
CPT/HCPCS: J2250; J3010; J7042

== ENCOUNTER 2020-04-13 16:30 | Emergency (ER) | payer BC, MEDICAID ==
[2020-04-13 16:49] VITALS: BP 99/65; PULSE 95
--- NOTE | 2020-04-13 17:48 | EDM.PDOC ---
ED HPI GENERAL MEDICAL PROBLEM - General Chief Complaint: Chest Pain Stated Complaint: FEELING SICK, SEVERE CHEST PAINS Time Seen by Provider: 04/13/20 17:15 Source of Information: Reports: Patient, RN, RN Notes Reviewed History Limitations: Reports: No Limitations - History of Present Illness INITIAL COMMENTS - FREE TEXT/NARRATIVE: Patient presents to ER with complaint of left-sided chest pain since Monday. Patient states she has been drinking alcohol for several days in a row. Last drink being yesterday. Patient states she has had a lot of stress trying to juggle work and school. Also states on Monday at work she did quite a bit of heavy lifting, moving furniture. Patient denies any recent drug use, admits to past history of meth, cocaine, marijuana. Patient admits the pain felt as a burning/stabbing feeling, and states that has improved since she has arrived. Patient does states she feels this is anxiety related. 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 no longer troubles pt. 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: Musculoskeletal 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: None Neurological 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: None Psychiatric 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: Depression, Emotional Problems, Suicide Attempt, Suicidal Ideation Endocrine/Metabolic 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: Other (See Below) Other Endocrine/Metabolic History: enlarged pituitary gland Hematologic 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: None Immunologic 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: None Oncologic (Cancer) 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: None Dermatologic 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: None - Infectious Disease History Infectious Disease 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: None - Past Surgical History Head Surgeries/Procedures: Reports: None HEENT Surgical 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: Other (See Below) Other HEENT Surgeries/Procedures: wisdom teeth Cardiovascular Surgical 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: None Respiratory Surgical 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: None GI Surgical 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: Colonoscopy, Hernia Repair/Other, Other (See Below) Other GI Surgeries/Procedures: due to ulcerative colitis flare, patient had 1\3 of her colon removed. Umbilical hernia repaired. Female Surgical 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: None Neurological Surgical 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: None Musculoskeletal Surgical 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: None Social & Family History - Family History Family Medical History: Noncontributory - Tobacco Use Smoking Status *Q: Current Every Day Smoker Years of Tobacco use: 6 Packs/Tins Daily: 0.5 Second Hand Smoke Exposure: No - Caffeine Use Caffeine Use: Reports: Coffee, Energy Drinks Caffeine Use Comment: coffee in the morning. - Recreational Drug Use Recreational Drug Use: Yes Recreational Drug Type: Reports: Cocaine, Marijuana/Hashish, Methamphetamine Recreational Drug Use Frequency: Not Used In Over 1 Month - Living Situation & Occupation Living situation: Reports: with Family ED ROS GENERAL - Review of Systems Review Of Systems: Comprehensive ROS is negative, except as noted in HPI. ED EXAM, GENERAL - Physical Exam Exam: See Below Exam Limited By: No Limitations General Appearance: Alert, WD/WN, No Apparent Distress, Anxious Eye Exam: Bilateral Eye: EOMI, Normal Inspection Ears: Normal External Exam, Hearing Grossly Normal Nose: Normal Inspection Throat/Mouth: Normal Inspection, Normal Voice, No Airway Compromise Head: Atraumatic, Normocephalic Neck: Normal Inspection, Supple, Non-Tender, Full Range of Motion Respiratory/Chest: No Respiratory Distress, Lungs Clear, Normal Breath Sounds, No Accessory Muscle Use, Chest Non-Tender Cardiovascular: Normal Peripheral Pulses, Regular Rate, Rhythm, No Edema, No Gallop, No JVD, No Murmur, No Rub Peripheral Pulses: 2+: Radial (L), Radial (R) GI/Abdominal: Normal Bowel Sounds, Soft, Non-Tender (Female) Exam: Deferred Rectal (Female) Exam: Deferred Back Exam: Normal Inspection, Full Range of Motion, NT Extremities: Normal Inspection, Normal Range of Motion, Non-Tender, Normal Capillary Refill, No Pedal Edema Neurological: Alert, Oriented, CN II-XII Intact, Normal Cognition, Normal Gait, Normal Reflexes, No Motor/Sensory Deficits Psychiatric: Normal Affect, Normal Mood, Anxious, Tearful Skin Exam: Warm, Dry, Intact, Normal Color, No Rash Lymphatic: No Adenopathy Course - Vital Signs Last Recorded V/S: Last Vital Signs Temp 98.2 F 04/13/20 16:47 Pulse 95 04/13/20 16:47 Resp 20 04/13/20 16:47 BP 99/65 04/13/20 16:47 Pulse Ox 98 04/13/20 16:47 - Orders/Labs/Meds Orders: Active Orders 24 hr Category Date Time Status EKG Documentation Completion [RC] STAT Care 04/13/20 17:48 Active [email or web address] Med 04/13/20 18:52 Once 500 mg PO ONETIME ONE Labs: Laboratory Tests 04/13/20 04/13/20 04/13/20 Range/Units 17:39 17:39 18:07 WBC 7.6 (5.0-10.0) 10^3/uL RBC 4.36 (4.2-5.4) 10^6/uL Hgb 12.6 (12.0-16.0) g/dL Hct 37.8 (37.0-47.0) % MCV 86.7 (80-100) fL MCH 28.9 (27.0-34.0) pg MCHC 33.3 (33.0-35.0) g/dL Plt Count 324 (150-450) 10^3/uL Neut % (Auto) 44.3 (42.2-75.2) % Lymph % (Auto) 45.1 (20.5-50.1) % [place] % (Auto) 7.8 (2-8) % Eos % (Auto) 2.5 (1.0-3.0) % Baso % (Auto) 0.3 (0.0-1.0) % Sodium (136-145) mmol/L Potassium (3.5-5.1) mmol/L Chloride (98-107) mmol/L Carbon Dioxide (21-32) mmol/L Anion Gap (7-13) mEq/L BUN (7-18) mg/dL Creatinine (0.55-1.02) mg/dL Est Cr Clr Drug Dosing mL/min Estimated GFR (MDRD) BUN/Creatinine Ratio (No establ ref range) Glucose (74-99) mg/dL Calcium (8.5-10.1) mg/dL Total Bilirubin (0.2-1.0) mg/dL AST (15-37) U/L ALT (14-59) U/L Alkaline Phosphatase (46-116) U/L Troponin I (0.000-0.056) ng/mL Total Protein (6.4-8.2) g/dL Albumin (3.4-5.0) g/dL Globulin Albumin/Globulin Ratio Urine Color Dark yellow (YELLOW) Urine Appearance Cloudy (CLEAR) Urine pH 5.5 (5.0-9.0) Ur Specific [place] >= 1.030 (1.005-1.030) Urine Protein 30 H (NEGATIVE) Urine Glucose (UA) Negative (NEGATIVE) Urine Ketones Negative (NEGATIVE) Urine Occult Blood Negative (NEGATIVE) Urine Nitrite Negative (NEGATIVE) Urine Bilirubin Negative (NEGATIVE) Urine Urobilinogen 0.2 (0.2-1.0) mg/dL Ur Leukocyte Esterase Negative (NEGATIVE) Urine RBC 0-5 /HPF Urine WBC 5-10 H (0-5/HPF) /HPF Ur Epithelial Cells Many H (NOT SEEN) /HPF Amorphous Sediment Few (NOT SEEN) /HPF Urine Bacteria Few (0-FEW/HPF) /HPF Urine Mucus Many H (NOT SEEN) /LPF Urine Trichomonas Present H (NOT SEEN) /HPF Urine Opiates Screen Negative (NEGATIVE) Ur Oxycodone Screen Negative (NEGATIVE) Urine Methadone Screen Negative (NEGATIVE) Ur Barbiturates Screen Negative (NEGATIVE) U Tricyclic Antidepress Negative (NEGATIVE) Ur Phencyclidine Scrn Negative (NEGATIVE) Ur Amphetamine Screen Negative (NEGATIVE) U Methamphetamines Scrn Negative (NEGATIVE) Urine MDMA Screen Negative (NEGATIVE) U Benzodiazepines Scrn Negative (NEGATIVE) Urine Cocaine Screen Negative (NEGATIVE) U Marijuana (THC) Screen Negative (NEGATIVE) Ethyl Alcohol (0) mg/dL 04/13/20 04/13/20 Range/Units 18:07 18:07 WBC (5.0-10.0) 10^3/uL RBC (4.2-5.4) 10^6/uL Hgb (12.0-16.0) g/dL Hct (37.0-47.0) % MCV (80-100) fL MCH (27.0-34.0) pg MCHC (33.0-35.0) g/dL Plt Count (150-450) 10^3/uL Neut % (Auto) (42.2-75.2) % Lymph % (Auto) (20.5-50.1) % [place] % (Auto) (2-8) % Eos % (Auto) (1.0-3.0) % Baso % (Auto) (0.0-1.0) % Sodium 140 (136-145) mmol/L Potassium 3.8 (3.5-5.1) mmol/L Chloride 104 (98-107) mmol/L Carbon Dioxide 28 (21-32) mmol/L Anion Gap 11.8 (7-13) mEq/L BUN 21 H (7-18) mg/dL Creatinine 1.07 H (0.55-1.02) mg/dL Est Cr Clr Drug Dosing 78.84 mL/min Estimated GFR (MDRD) > 60 BUN/Creatinine Ratio 19.6 (No establ ref range) Glucose 84 (74-99) mg/dL Calcium 9.0 (8.5-10.1) mg/dL Total Bilirubin 0.8 (0.2-1.0) mg/dL AST 14 L (15-37) U/L ALT 21 (14-59) U/L Alkaline Phosphatase 55 (46-116) U/L Troponin I < 0.017 (0.000-0.056) ng/mL Total Protein 7.6 (6.4-8.2) g/dL Albumin 3.9 (3.4-5.0) g/dL Globulin 3.7 Albumin/Globulin Ratio 1.1 Urine Color (YELLOW) Urine Appearance (CLEAR) Urine pH (5.0-9.0) Ur Specific [place] (1.005-1.030) Urine Protein (NEGATIVE) Urine Glucose (UA) (NEGATIVE) Urine Ketones (NEGATIVE) Urine Occult Blood (NEGATIVE) Urine Nitrite (NEGATIVE) Urine Bilirubin (NEGATIVE) Urine Urobilinogen (0.2-1.0) mg/dL Ur Leukocyte Esterase (NEGATIVE) Urine RBC /HPF Urine WBC (0-5/HPF) /HPF Ur Epithelial Cells (NOT SEEN) /HPF Amorphous Sediment (NOT SEEN) /HPF Urine Bacteria (0-FEW/HPF) /HPF Urine Mucus (NOT SEEN) /LPF Urine Trichomonas (NOT SEEN) /HPF Urine Opiates Screen (NEGATIVE) Ur Oxycodone Screen (NEGATIVE) Urine Methadone Screen (NEGATIVE) Ur Barbiturates Screen (NEGATIVE) U Tricyclic Antidepress (NEGATIVE) Ur Phencyclidine Scrn (NEGATIVE) Ur Amphetamine Screen (NEGATIVE) U Methamphetamines Scrn (NEGATIVE) Urine MDMA Screen (NEGATIVE) U Benzodiazepines Scrn (NEGATIVE) Urine Cocaine Screen (NEGATIVE) U Marijuana (THC) Screen (NEGATIVE) Ethyl Alcohol < 3 (0) mg/dL Departure - Departure Time of Disposition: 18:50 Disposition: Home, Self-Care 01 Reason for Transfer *Q: Other Condition: Fair Clinical Impression: Anxiety, Trichimoniasis, Nonspecific chest pain Instructions: Nonspecific Chest Pain, Adult, [id number] Forms: ED Department Discharge Additional Instructions: Drink lots of water May use Tylenol and/or ibuprofen as directed for pain Rx: Flagyl Do not drink alcohol while taking Flagyl, you will become extremely sick Follow-up with your primary care provider Sepsis Event Note (ED) - Evaluation Sepsis Screening Result: No Definite Risk - Focused Exam Vital Signs: Vital Signs Temp Pulse Resp BP Pulse Ox 04/13/20 16:47 98.2 F 95 20 99/65 98 - My Orders Last 24 Hours: My Active Orders 04/13/20 17:48 EKG Documentation Completion [RC] STAT 04/13/20 18:52 metroNIDAZOLE 500 mg PO ONETIME ONE - Assessment/Plan Last 24 Hours: My Active Orders 04/13/20 17:48 EKG Documentation Completion [RC] STAT 04/13/20 18:52 metroNIDAZOLE 500 mg PO ONETIME ONE
--- NOTE | 2020-04-13 18:15 | CR ---
PROCEDURE INFORMATION: Exam: XR Chest, 1 View Exam date and time: 04/13/2020 5:56 PM Age: 24 years old Clinical indication: Chest pain TECHNIQUE: Imaging protocol: XR of the chest Views: 1 view. COMPARISON: CR Chest 1V Frontal 06/09/2016 10:52 PM FINDINGS: Lungs: Unremarkable. No consolidation. Pleural space: Unremarkable. No pleural effusion. No pneumothorax. Heart/Mediastinum: Unremarkable. No cardiomegaly. Bones/joints: Unremarkable. IMPRESSION: No acute findings.
[2020-04-13 18:35] LABS: ANION GAP 11.8 mEq/L (7-13); CHLORIDE,CL 104 mmol/L (98-107); SODIUM,NA 140 mmol/L (136-145)
[2020-04-13] MEDS ORDERED: metroNIDAZOLE 250 MG Tab PO ONE (18:52)
== END 2020-04-13 19:05 | disposition home or self-care (01) ==
LOC: DL.ED 16:30
DX: F41.9 Anxiety disorder, unspecified (principal); R07.9 Chest pain, unspecified; A59.9 Trichomoniasis, unspecified; J45.909 Unspecified asthma, uncomplicated; F17.210 Nicotine dependence, cigarettes, uncomplicated
CPT/HCPCS: 36415; 71045; 80053; 80305; 80307; 81001; 84484; 85025; 93005; 99285; A9270; 99283

== ENCOUNTER 2020-08-18 18:11 | Emergency (ER) | payer MEDICAID ==
[2020-08-18 18:30] VITALS: BP 112/73; PULSE 86
[2020-08-18] MEDS: metroNIDAZOLE 250 MG Tab PO ONE (19:23)
[2020-08-18] MEDS: Ondansetron 4 MG Tab.DIS PO ONE (19:24)
--- NOTE | 2020-08-18 19:25 | EDM.PDOC ---
ED HPI GENERAL MEDICAL PROBLEM - General Chief Complaint: General Stated Complaint: VOMITING, UPPER BACK PAIN, MIGHT BE Time Seen by Provider: 08/18/20 18:45 Source of Information: Reports: Patient, RN, RN Notes Reviewed History Limitations: Reports: No Limitations - History of Present Illness INITIAL COMMENTS - FREE TEXT/NARRATIVE: Patient presents to the ED via personal vehicle with complaints of nausea and fatigue for the past four days. The patient notes her current menses, which started four days ago, was two days past her usual start date and she is concerned she is . The patient describes her current menses as heavy and has had to change her pad more frequently than she normally does. She denies fever, shaking chills, dyspepsia, abdominal pain, vomiting, dysuria, diarrhea, melena, or hematochezia. She attests to smoking 1/2 pack of cigarettes per day; she denies alcohol or recreational drug use. Upper Back Pain Score (Numeric/FACES): 8 - Related Data Allergies Allergy/AdvReac Type Severity Reaction Status Date / Time No Known Allergies Allergy Verified 08/18/20 18:34 Home Meds: Home Meds Multivitamin [Multi-Day Vitamins] 1 tab PO DAILY 09/09/18 [History] Past Medical History HEENT 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: None Cardiovascular 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: None Respiratory 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: Asthma Other Respiratory History: just as a child. no longer troubles pt. 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: Musculoskeletal 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: None Neurological 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: None Psychiatric 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: Depression, Emotional Problems, Suicide Attempt, Suicidal Ideation Endocrine/Metabolic 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: Other (See Below) Other Endocrine/Metabolic History: enlarged pituitary gland Hematologic 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: None Immunologic 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: None Oncologic (Cancer) 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: None Dermatologic 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: None - Infectious Disease History Infectious Disease 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: None - Past Surgical History Head Surgeries/Procedures: Reports: None HEENT Surgical 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: Other (See Below) Other HEENT Surgeries/Procedures: wisdom teeth Cardiovascular Surgical 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: None Respiratory Surgical 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: None GI Surgical 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: Colonoscopy, Hernia Repair/Other, Other (See Below) Other GI Surgeries/Procedures: due to ulcerative colitis flare, patient had 1\3 of her colon removed. Umbilical hernia repaired. Female Surgical 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: None Neurological Surgical 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: None Musculoskeletal Surgical 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: None Social & Family History - Family History Family Medical History: No Pertinent Family History - Tobacco Use Tobacco Use Status *Q: Current Every Day Tobacco User Years of Tobacco use: 6 Packs/Tins Daily: 0.5 - Caffeine Use Caffeine Use: Reports: Coffee Caffeine Use Comment: coffee in the morning. - Recreational Drug Use Recreational Drug Use: Yes Recreational Drug Type: Reports: Marijuana/Hashish - Living Situation & Occupation Living situation: Reports: with Family ED ROS GENERAL - Review of Systems Review Of Systems: Comprehensive ROS is negative, except as noted in HPI. ED EXAM, GENERAL - Physical Exam Exam: See Below Exam Limited By: No Limitations General Appearance: Alert, WD/WN, No Apparent Distress Throat/Mouth: Normal Inspection, Normal Voice, No Airway Compromise Head: Atraumatic, Normocephalic Respiratory/Chest: No Respiratory Distress, Lungs Clear, Normal Breath Sounds, No Accessory Muscle Use, Chest Non-Tender Cardiovascular: Normal Peripheral Pulses, Regular Rate, Rhythm, No Edema, No Gallop, No JVD, No Murmur, No Rub GI/Abdominal: Normal Bowel Sounds, Soft, Non-Tender, No Distention, No Mass (Female) Exam: Deferred Rectal (Female) Exam: Deferred Back Exam: Normal Inspection, Full Range of Motion. No: CVA Tenderness (L), CVA Tenderness (R) Extremities: Normal Inspection, Normal Range of Motion, Non-Tender, No Pedal Edema, Normal Capillary Refill Neurological: Alert, Oriented, CN II-XII Intact, Normal Cognition, Normal Gait, No Motor/Sensory Deficits Psychiatric: Anxious Skin Exam: Warm, Dry, Intact, Normal Color, No Rash. No: Ecchymosis, Erythema, Increased Warmth, Jaundice, Mottled, Pallor, Petechiae Course - Vital Signs Last Recorded V/S: Last Vital Signs Temp 98.3 F 08/18/20 18:29 Pulse 86 08/18/20 18:29 Resp 16 08/18/20 18:29 BP 112/73 08/18/20 18:29 Pulse Ox 100 08/18/20 18:29 - Orders/Labs/Meds Labs: Laboratory Tests 08/18/20 08/18/20 08/18/20 Range/Units 18:22 18:22 18:22 Urine Color Yellow (YELLOW) Urine Appearance Slightly cloudy (CLEAR) Urine pH 6.0 (5.0-9.0) Ur Specific [place] >= 1.030 (1.005-1.030) Urine Protein 30 H (NEGATIVE) Urine Glucose (UA) Negative (NEGATIVE) Urine Ketones Trace H (NEGATIVE) Urine Occult Blood Large H (NEGATIVE) Urine Nitrite Negative (NEGATIVE) Urine Bilirubin Negative (NEGATIVE) Urine Urobilinogen 1.0 (0.2-1.0) mg/dL Ur Leukocyte Esterase Negative (NEGATIVE) Urine RBC 5-10 H /HPF Urine WBC 0-5 (0-5/HPF) /HPF Ur Epithelial Cells Moderate H (NOT SEEN) /HPF Amorphous Sediment Few (NOT SEEN) /HPF Urine Bacteria Few (0-FEW/HPF) /HPF Urine Mucus Many H (NOT SEEN) /LPF Urine Other See note Urine HCG, Qual Negative Urine Opiates Screen Negative (NEGATIVE) Ur Oxycodone Screen Negative (NEGATIVE) Urine Methadone Screen Negative (NEGATIVE) Ur Barbiturates Screen Negative (NEGATIVE) U Tricyclic Antidepress Negative (NEGATIVE) Ur Phencyclidine Scrn Negative (NEGATIVE) Ur Amphetamine Screen Negative (NEGATIVE) U Methamphetamines Scrn Negative (NEGATIVE) Urine MDMA Screen Negative (NEGATIVE) U Benzodiazepines Scrn Negative (NEGATIVE) Urine Cocaine Screen Negative (NEGATIVE) U Marijuana (THC) Screen Positive H (NEGATIVE) Meds: Medications Discontinued Medications Generic Name Dose Route Start Last Admin Trade Name Faustino PRN Reason Stop Dose Admin Metronidazole 500 mg 08/18/20 19:19 08/18/20 19:23 Metronidazole PO 08/18/20 19:20 500 mg ONETIME ONE Administration Ondansetron HCl 4 mg 08/18/20 19:20 08/18/20 19:24 Zofran Odt PO 08/18/20 19:21 4 mg ONETIME ONE Administration - Re-Assessments/Exams Free Text/Narrative Re-Assessment/Exam: 08/18/20 test negative. UA remarkable for clue cells. Patient continues to question possible despite current menses and negative test today. Patient counseled on the roll of the menstrual cycle and . Discussed lab findings and the diagnosis of BV d/t clue cells in her urine. Will treat BV with Flagyl; first dose given tonight at this facility. Will treat acute nausea with Zofran. Red flag signs and symptoms which would warrant reevaluation discussed. Patient verbalized understanding and agreement with the plan of care. Departure - Departure Time of Disposition: 19:23 Disposition: Home, Self-Care 01 Condition: Good Clinical Impression: Bacterial vaginosis, Upper back pain - Discharge Information *PRESCRIPTION DRUG MONITORING PROGRAM REVIEWED*: Not Applicable *COPY OF PRESCRIPTION DRUG MONITORING REPORT IN PATIENT GINO: Not Applicable Instructions: Acute Back Pain, Adult, Bacterial Vaginosis, [id number] Forms: ED Department Discharge Additional Instructions: Rx: Metronidazole Rx: Zofran ODT 1.) Take all of your antibiotics until gone. 2.) Eat small, frequent meals to avoid nausea. 3.) Drink plenty of water to stay hydrated. Sepsis Event Note (ED) - Evaluation Sepsis Screening Result: No Definite Risk - Focused Exam Vital Signs: Vital Signs Temp Pulse Resp BP Pulse Ox 08/18/20 18:29 98.3 F 86 16 112/73 100
== END 2020-08-18 19:33 | disposition home or self-care (01) ==
LOC: DL.ED 18:11
DX: N76.0 Acute vaginitis (principal); B96.89 Other specified bacterial agents as the cause of diseases classified elsewhere; J45.909 Unspecified asthma, uncomplicated; Z72.0 Tobacco use
CPT/HCPCS: 80305; 81001; 81025; 99283; 99284; A9270

== ENCOUNTER 2020-09-01 12:31 | Emergency (ER) | payer MEDICAID ==
[2020-09-01 12:37] VITALS: BP 100/58; PULSE 71
--- NOTE | 2020-09-01 13:08 | EDM.PDOC ---
ED HPI GENERAL MEDICAL PROBLEM - General Chief Complaint: General Time Seen by Provider: 09/01/20 12:40 Source of Information: Reports: Patient, RN, RN Notes Reviewed History Limitations: Reports: No Limitations - History of Present Illness INITIAL COMMENTS - FREE TEXT/NARRATIVE: Patient presents to the ED via EMS with complaints of shortness of breath, chest pain, and double vision. The patient states she has been experiencing the symptoms of chest pain and shortness of breath for approximately two weeks; the double vision occurred abruptly today following a verbal altercation with her boyfriend and mother. She characterizes the chest pain as sharp and burning in nature. She denies taking any medications for these symptoms. Additionally, she attests to abrupt headche, nausea, and two bouts of emesis following the aforementioned verbal altercation. She denies fever, shaking chills, palpitations, abdominal pain, dysuria, hematuria, or diarrhea. She attests to smoking 1/4 pack of cigarettes per day and occasionally smoking cannabis. She denies alcohol use or additional recreational drug use. - Related Data Allergies Allergy/AdvReac Type Severity Reaction Status Date / Time No Known Allergies Allergy Verified 09/01/20 12:31 Home Meds: Home Meds Ibuprofen [Ibu] 600 mg PO Q6H PRN 09/01/20 [History] Orphenadrine [Norflex] 100 mg PO BEDTIME PRN 09/01/20 [History] Past Medical History HEENT 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: None Cardiovascular 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: None Respiratory 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: Asthma Other Respiratory History: just as a child. no longer troubles pt. 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, Recurrent [employer] 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: Musculoskeletal 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: None Neurological 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: None Psychiatric 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: Depression, Emotional Problems, Suicide Attempt, Suicidal Ideation Endocrine/Metabolic 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: Other (See Below) Other Endocrine/Metabolic History: enlarged pituitary gland Hematologic 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: None Immunologic 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: None Oncologic (Cancer) 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: None Dermatologic 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: None - Infectious Disease History Infectious Disease 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: Novel Coronavirus - Past Surgical History Head Surgeries/Procedures: Reports: None HEENT Surgical 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: Other (See Below) Other HEENT Surgeries/Procedures: wisdom teeth Cardiovascular Surgical 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: None Respiratory Surgical 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: None GI Surgical 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: Colonoscopy, Hernia Repair/Other, Other (See Below) Other GI Surgeries/Procedures: due to ulcerative colitis flare, patient had 1\\3 of her colon removed. Umbilical hernia repaired. Female Surgical 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: None Neurological Surgical 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: None Musculoskeletal Surgical 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: None Social & Family History - Family History Family Medical History: No Pertinent Family History - Tobacco Use Tobacco Use Status *Q: Current Every Day Tobacco User Years of Tobacco use: 7 Packs/Tins Daily: 0.2 - Caffeine Use Caffeine Use: Reports: Coffee, Energy Drinks, Soda, Tea Caffeine Use Comment: coffee in the morning. - Recreational Drug Use Recreational Drug Use: Yes Recreational Drug Type: Reports: Marijuana/Hashish Recreational Drug Last Use: 2 months ago - Living Situation & Occupation Living situation: Reports: with Family ED ROS GENERAL - Review of Systems Review Of Systems: Comprehensive ROS is negative, except as noted in HPI. ED EXAM, GENERAL - Physical Exam Exam: See Below Exam Limited By: No Limitations General Appearance: Alert, No Apparent Distress Eye Exam: Bilateral Eye: EOMI, PERRL (3mm), Other (Patient verbalizes double vision, but is able to appropriately follow the nystagmus assessment with no nystagmus appreciated) Throat/Mouth: Normal Inspection, Normal Voice, No Airway Compromise Head: Atraumatic, Normocephalic Neck: Normal Inspection, Supple, Non-Tender, Full Range of Motion. No: Lymphadenopathy (L), Lymphadenopathy (R) Respiratory/Chest: Decreased Breath Sounds, Wheezing (Expiratory to left upper lobe). No: Crackles, Rales, Rhonchi Cardiovascular: Normal Peripheral Pulses, No Edema, No Gallop, No JVD, No Murmur, No Rub, Bradycardia Peripheral Pulses: 2+: Radial (L), Radial (R) GI/Abdominal: Soft, Non-Tender, No Distention, No Mass, Pelvis Stable, Abnormal Bowel Sounds (Hyperactive bowel sounds) (Female) Exam: Deferred Rectal (Female) Exam: Deferred Back Exam: Normal Inspection, Full Range of Motion. No: CVA Tenderness (L), CVA Tenderness (R) Extremities: Normal Inspection, Normal Range of Motion, Non-Tender, Normal Capillary Refill, No Pedal Edema Neurological: Alert, Oriented, CN II-XII Intact, Normal Cognition, Normal Gait, No Motor/Sensory Deficits Psychiatric: Normal Affect, Normal Mood Skin Exam: Warm, Dry, Intact, Normal Color, No Rash. No: Ecchymosis, Erythema, Jaundice, Mottled, Pallor, Petechiae Lymphatic: No Adenopathy #1 Interpretation EKG Date: 09/01/20 Time: 12:52 Rhythm: Other (Sinus Moshe) Rate (Beats/Min): 59 [place]: LAD-Left [place] Deviation P-Wave: Present QRS: Normal ST-T: Normal QT: Normal Comparison: No Change EKG Interpretation Comments: SB; No evidence of acute myocardial injury Course - Vital Signs Last Recorded V/S: Last Vital Signs Temp 97.6 F 09/01/20 12:33 Pulse 71 09/01/20 12:33 Resp 18 09/01/20 12:33 BP 100/58 L 09/01/20 12:33 Pulse Ox 100 09/01/20 12:33 - Orders/Labs/Meds Orders: Active Orders 24 hr Category Date Time Status EKG Documentation Completion [RC] STAT Care 09/01/20 12:42 Active DRUG SCREEN URINE BIORAD [URCHEM] Urgent Lab 09/01/20 12:43 Ordered REFLEX LACTIC ACID YES OR NO [CHEM] Routine Lab 09/01/20 13:22 Received UA RFX MARI AND CULT IF INDIC [URIN] Stat Lab 09/01/20 12:43 Ordered Labs: Laboratory Tests 09/01/20 09/01/20 09/01/20 Range/Units 12:51 12:51 12:51 WBC 9.0 (5.0-10.0) 10^3/uL RBC 5.01 (4.2-5.4) 10^6/uL Hgb 14.4 D (12.0-16.0) g/dL Hct 42.4 (37.0-47.0) % MCV 84.6 (80-100) fL MCH 28.7 (27.0-34.0) pg MCHC 34.0 (33.0-35.0) g/dL Plt Count 307 (150-450) 10^3/uL Neut % (Auto) 79.0 H (42.2-75.2) % Lymph % (Auto) 13.6 L (20.5-50.1) % Tyler % (Auto) 7.2 (2-8) % Eos % (Auto) 0.1 L (1.0-3.0) % Baso % (Auto) 0.1 (0.0-1.0) % D-Dimer, Quantitative 102 (0-400) ng/mL Sodium 139 (136-145) mmol/L Potassium 3.0 L (3.5-5.1) mmol/L Chloride 102 (98-107) mmol/L Carbon Dioxide 23 (21-32) mmol/L Anion Gap 17.0 H (7-13) mEq/L BUN 9 (7-18) mg/dL Creatinine 1.04 H (0.55-1.02) mg/dL Est Cr Clr Drug Dosing 74.02 mL/min Estimated GFR (MDRD) > 60 BUN/Creatinine Ratio 8.7 (No establ ref range) Glucose 93 (74-99) mg/dL Lactic Acid (0.4-2.0) mmol/L Calcium 9.0 (8.5-10.1) mg/dL Total Bilirubin 1.2 H (0.2-1.0) mg/dL AST 13 L (15-37) U/L ALT 17 (14-59) U/L Alkaline Phosphatase 52 (46-116) U/L Troponin I < 0.017 (0.000-0.056) ng/mL C-Reactive Protein 0.2 (0.0-0.9) mg/dL Total Protein 8.1 (6.4-8.2) g/dL Albumin 4.6 (3.4-5.0) g/dL Globulin 3.5 Albumin/Globulin Ratio 1.3 HCG, Qual Negative 09/01/20 Range/Units 12:51 WBC (5.0-10.0) 10^3/uL RBC (4.2-5.4) 10^6/uL Hgb (12.0-16.0) g/dL Hct (37.0-47.0) % MCV (80-100) fL MCH (27.0-34.0) pg MCHC (33.0-35.0) g/dL Plt Count (150-450) 10^3/uL Neut % (Auto) (42.2-75.2) % Lymph % (Auto) (20.5-50.1) % Tyler % (Auto) (2-8) % Eos % (Auto) (1.0-3.0) % Baso % (Auto) (0.0-1.0) % D-Dimer, Quantitative (0-400) ng/mL Sodium (136-145) mmol/L Potassium (3.5-5.1) mmol/L Chloride (98-107) mmol/L Carbon Dioxide (21-32) mmol/L Anion Gap (7-13) mEq/L BUN (7-18) mg/dL Creatinine (0.55-1.02) mg/dL Est Cr Clr Drug Dosing mL/min Estimated GFR (MDRD) BUN/Creatinine Ratio (No establ ref range) Glucose (74-99) mg/dL Lactic Acid 2.3 H* (0.4-2.0) mmol/L Calcium (8.5-10.1) mg/dL Total Bilirubin (0.2-1.0) mg/dL AST (15-37) U/L ALT (14-59) U/L Alkaline Phosphatase (46-116) U/L Troponin I (0.000-0.056) ng/mL C-Reactive Protein (0.0-0.9) mg/dL Total Protein (6.4-8.2) g/dL Albumin (3.4-5.0) g/dL Globulin Albumin/Globulin Ratio HCG, Qual Meds: Medications Discontinued Medications Generic Name Dose Route Start Last Admin Trade Name Freq PRN Reason Stop Dose Admin Potassium Chloride 40 meq 09/01/20 13:39 Klor-Con 10 PO 09/01/20 13:40 ONETIME ONE - Re-Assessments/Exams Free Text/Narrative Re-Assessment/Exam: 09/01/20 Given length of stated chest pain in the presence of a normal EKG and WNL troponin, patient has essentially ruled herself out for acute myocardial ischemia. CBC and CXR unremarkable for acute processes. Lactic acid mildly elevated at 2.3; Potassium low at 3.0; Creatinine indicative of mild dehydration at 1.04 with anion gap of 17. Discussed rehydration with NS 1L bolus and KCl 10mEq with patient; she declined therapy and stated she wished to go home. She states she does not want to provide urine as she feels "...much better now." The patient states her chest pain, shortness of breath, and double vision have completely improved. Discussed importance of hydration with water and eating a balanced, healthy diet. Will treat low K with KCL 40mEq PO x1. Red flag signs and symptoms which would warrant reevaluation discussed. Patient verbalized understanding and agreement with the plan of care. Departure - Departure Time of Disposition: 13:38 Disposition: Home, Self-Care 01 Condition: Good Clinical Impression: Dehydration, Hypokalemia, Lactic acidosis - Discharge Information *PRESCRIPTION DRUG MONITORING PROGRAM REVIEWED*: Not Applicable *COPY OF PRESCRIPTION DRUG MONITORING REPORT IN PATIENT GINO: Not Applicable Instructions: Dehydration, Adult, [id number] Forms: ED Department Discharge Additional Instructions: 1.) Drink plenty of water to stay hydrated. 2.) You may take a daily multivitamin, as discussed today. 3.) Eat a balanced, healthy diet. 4.) Follow up with your primary care provider, as needed. Sepsis Event Note (ED) - Evaluation Sepsis Screening Result: No Definite Risk - Focused Exam Vital Signs: Vital Signs Temp Pulse Resp BP Pulse Ox 09/01/20 12:33 97.6 F 71 18 100/58 L 100 - My Orders Last 24 Hours: My Active Orders 09/01/20 12:42 EKG Documentation Completion [RC] STAT 09/01/20 12:43 DRUG SCREEN URINE BIORAD [URCHEM] Urgent UA RFX MARI AND CULT IF INDIC [URIN] Stat 09/01/20 13:22 REFLEX LACTIC ACID YES OR NO [CHEM] Routine - Assessment/Plan Last 24 Hours: My Active Orders 09/01/20 12:42 EKG Documentation Completion [RC] STAT 09/01/20 12:43 DRUG SCREEN URINE BIORAD [URCHEM] Urgent UA RFX MARI AND CULT IF INDIC [URIN] Stat 09/01/20 13:22 REFLEX LACTIC ACID YES OR NO [CHEM] Routine
[2020-09-01 13:20] LABS: CHLORIDE,CL 102 mmol/L (98-107); SODIUM,NA 139 mmol/L (136-145)
--- NOTE | 2020-09-01 13:24 | CR ---
EXAMINATION: Chest 2V SEX: Female AGE: 25 years CLINICAL HISTORY: 25-year-old female with post Covid (earlier May infection) symptomatology i.e. SHORTNESS OF BREATH worse over the past 2 weeks. Comparison CXR 13 April 2020. Interpretation: External cardiac rehabilitation program director leads and gown snaps. 1. Generalized hyperinflation lung wiggins but no peribronchial "cuffing" or cystic/bullous emphysematous lesions. 2. No pneumothorax or pneumomediastinum. Midline tracheal bronchial airway unremarkable. 3. Normal cardiac silhouette. No pulmonary vascular congestion, cephalization of flow, alveolar edema or dependent pleural fluid accumulation (effusions). 4. No new lung mass, hilar lymphadenopathy, or focal lobar alveolar consolidation. No peripheral "groundglass" interstitial lung densities. No atelectasis or collapse. CONCLUSION: No new cardiopulmonary abnormality.
[2020-09-01] MEDS ORDERED: Potassium Chloride 10 MEQ Tab.ER PO ONE (13:39)
== END 2020-09-01 13:48 | disposition home or self-care (01) ==
LOC: DL.ED 12:31
DX: E87.6 Hypokalemia (principal); E86.0 Dehydration; E87.2 Acidosis; J45.909 Unspecified asthma, uncomplicated; Z72.0 Tobacco use
CPT/HCPCS: 36415; 71046; 80053; 83605; 84484; 84703; 85025; 85379; 86140; 93005; 99285; A9270; 93010; 99284

== ENCOUNTER 2021-10-14 09:53 | Emergency (ER) | payer BC, MEDICAID ==
[2021-10-14 10:30] VITALS: BP 100/69; PULSE 81
[2021-10-14 12:13] LABS: ANION GAP 14.4 mEq/L (7-13); CHLORIDE,CL 108 mmol/L (98-107); SODIUM,NA 143 mmol/L (136-145)
[2021-10-14 12:50] LABS: AMPHETAMINES,URINE NEGATIVE (NEGATIVE); BARBITURATES,URINE NEGATIVE (NEGATIVE); BENZODIAZEPINE,URINE POSITIVE (NEGATIVE); MDMA (ECSTASY), URINE NEGATIVE (NEGATIVE); METHADONE,URINE NEGATIVE (NEGATIVE); METHAMPHETAMINES,URINE NEGATIVE (NEGATIVE); OPIATES,URINE NEGATIVE (NEGATIVE); OXYCODONE,URINE NEGATIVE (NEGATIVE); PHENCYCLIDINE,URINE NEGATIVE (NEGATIVE); TCA,URINE NEGATIVE (NEGATIVE)
== END 2021-10-14 13:12 | disposition home or self-care (01) ==
LOC: DL.ED 09:53
DX: N76.0 Acute vaginitis (principal); B96.89 Other specified bacterial agents as the cause of diseases classified elsewhere; Z88.8 Allergy status to other drugs, medicaments and biological substances; Z72.0 Tobacco use
CPT/HCPCS: 36415; 80053; 80305-QW; 80307; 81001; 82150; 83605; 83690; 84703; 85025; 86140; 87086; 99283; 99284

== ENCOUNTER 2021-11-09 11:14 | Emergency (ER) | payer BC ==
[2021-11-09 11:35] VITALS: BP 113/76; PULSE 90
[2021-11-09 12:07] LABS: ANION GAP 15.8 mEq/L (7-13); CHLORIDE,CL 106 mmol/L (98-107); SODIUM,NA 141 mmol/L (136-145)
[2021-11-09 12:10] LABS: ACETAMINOPHEN 0 ug/mL (10-30 (Therapeutic))
[2021-11-09 12:23] LABS: CORONAVIRUS COVID-19 NAA NEGATIVE (NEGATIVE)
[2021-11-09 12:29] LABS: AMPHETAMINES,URINE NEGATIVE (NEGATIVE); BARBITURATES,URINE NEGATIVE (NEGATIVE); BENZODIAZEPINE,URINE NEGATIVE (NEGATIVE); MDMA (ECSTASY), URINE NEGATIVE (NEGATIVE); METHADONE,URINE NEGATIVE (NEGATIVE); METHAMPHETAMINES,URINE NEGATIVE (NEGATIVE); OPIATES,URINE NEGATIVE (NEGATIVE); OXYCODONE,URINE NEGATIVE (NEGATIVE); PHENCYCLIDINE,URINE NEGATIVE (NEGATIVE); TCA,URINE NEGATIVE (NEGATIVE)
== END 2021-11-09 14:43 | disposition home or self-care (01) ==
LOC: DL.ED 11:14
DX: F32.A Depression, unspecified (principal); R45.851 Suicidal ideations; Z20.822 Contact with and (suspected) exposure to COVID-19; Z72.0 Tobacco use
CPT/HCPCS: 0240U; 36415; 80053; 80143; 80179; 80305; 80307; 81001; 81025; 85025; 87086; 99284

== ENCOUNTER 2022-05-07 09:05 | Emergency (ER) | payer BC, MEDICAID ==
[2022-05-07] MEDS ORDERED: THIAMINE IV ONE ×4 (21:45)
[2022-05-07] MEDS ORDERED: [UNRECOGNIZED DRUG - OTHER] IV ONE ×4 (21:45)
[2022-05-07] MEDS ORDERED: FOLIC ACID IV ONE ×4 (21:45)
[2022-05-07] MEDS ORDERED: VITAMIN K IV ONE ×4 (21:45)
[2022-05-07] MEDS ORDERED: MVI IV ONE ×4 (21:45)
[2022-05-07] MEDS ORDERED: Ondansetron 4 MG/2 ML SDV IVPUSH ONE (22:00)
[2022-05-31 11:41] LABS: ACETAMINOPHEN 0 ug/mL (10-30 (Therapeutic)); ANION GAP 18.5 mEq/L (7-13); CHLORIDE,CL 107 mmol/L (98-107); ESTIMATED GFR 87 mL/min (>=60); SODIUM,NA 146 mmol/L (136-145)
[2022-05-31 11:44] LABS: CORONAVIRUS COVID-19 NAA NEGATIVE (NEGATIVE)
[2022-05-31 11:45] LABS: METHAMPHETAMINES,URINE NEGATIVE (NEGATIVE)
[2022-05-31 11:46] LABS: AMPHETAMINES,URINE NEGATIVE (NEGATIVE); BARBITURATES,URINE NEGATIVE (NEGATIVE); BENZODIAZEPINE,URINE NEGATIVE (NEGATIVE); MDMA (ECSTASY), URINE NEGATIVE (NEGATIVE); METHADONE,URINE NEGATIVE (NEGATIVE); OPIATES,URINE NEGATIVE (NEGATIVE); OXYCODONE,URINE NEGATIVE (NEGATIVE); PHENCYCLIDINE,URINE NEGATIVE (NEGATIVE); TCA,URINE NEGATIVE (NEGATIVE)
== END 2022-05-08 01:21 | disposition other institution (70) ==
LOC: DL.ED 09:05
DX: F10.10 Alcohol abuse, uncomplicated (principal); Z20.822 Contact with and (suspected) exposure to COVID-19
CPT/HCPCS: 0240U; 36415; 80053; 80143; 80179; 80305-QW; 80307; 81001; 82150; 83605; 83690; 83735; 85025; 96365; 96375; 99284-25; C1758; J2405; J3411; J3490; J7120

== ENCOUNTER 2022-05-16 15:09 | Emergency (ER) | payer BC | END 2022-05-16 16:11 | disposition left against medical advice (07) | LOC: DL.ED 15:09 | DX: Z53.21 Procedure and treatment not carried out due to patient leaving prior to being seen by health care provider (principal) ==

== ENCOUNTER 2022-08-03 16:07 | Emergency (ER) | payer MEDICAID | END 2022-08-03 17:26 | disposition left against medical advice (07) | LOC: DL.ED 16:07 | DX: Z53.21 Procedure and treatment not carried out due to patient leaving prior to being seen by health care provider (principal) ==

== ENCOUNTER 2022-08-17 16:46 | Emergency (ER) | payer MEDICAID ==
[2022-08-17 17:15] VITALS: BP 118/74; PULSE 119
== END 2022-08-17 17:39 | disposition home or self-care (01) ==
LOC: DL.ED 16:46
DX: Z00.00 Encounter for general adult medical examination without abnormal findings (principal); Z88.8 Allergy status to other drugs, medicaments and biological substances; Z79.899 Other long term (current) drug therapy
CPT/HCPCS: 99281; 99282

== ENCOUNTER 2022-08-18 19:18 | Emergency (ER) | payer MEDICAID ==
[2022-08-18 19:43] LABS: AMPHETAMINES,URINE NEGATIVE (NEGATIVE); BARBITURATES,URINE NEGATIVE (NEGATIVE); BENZODIAZEPINE,URINE NEGATIVE (NEGATIVE); MDMA (ECSTASY), URINE NEGATIVE (NEGATIVE); METHADONE,URINE NEGATIVE (NEGATIVE); METHAMPHETAMINES,URINE NEGATIVE (NEGATIVE); OPIATES,URINE NEGATIVE (NEGATIVE); OXYCODONE,URINE NEGATIVE (NEGATIVE); PHENCYCLIDINE,URINE NEGATIVE (NEGATIVE); TCA,URINE NEGATIVE (NEGATIVE)
[2022-08-18 19:48] VITALS: BP 121/82; PULSE 99
== END 2022-08-18 20:51 ==
LOC: DL.ED 19:18
DX: Z02.89 Encounter for other administrative examinations (principal); F17.210 Nicotine dependence, cigarettes, uncomplicated; Z88.8 Allergy status to other drugs, medicaments and biological substances
CPT/HCPCS: 72170; 80305-QW; 81003; 81025; 99283

== ENCOUNTER 2023-01-21 01:14 | Emergency (ER) | payer MEDICAID ==
[2023-01-21 00:41] LABS: BASOPHILS PERCENT AUTO 0.2 % (0.0-1.0); EOSINOPHILS PERCENT AUTO 2.3 % (1.0-3.0); HEMATOCRIT 35.7 % (37.0-47.0); HEMOGLOBIN 11.7 g/dL (12.0-16.0); LYMPHOCYTES PERCENT AUTO 50.5 % (20.5-50.1); MEAN CORPUSCULAR HEMOGLOBIN 28.3 pg (27.0-34.0); MEAN CORPUSCULAR HGB CONC 32.8 g/dL (33.0-35.0); MEAN CORPUSCULAR VOLUME 86.4 fL (80-100); MONOCYTES PERCENT AUTO 9.9 % (2-8); NEUTROPHILS PERCENT AUTO 37.1 % (42.2-75.2); PLATELET COUNT,PLT 269 10^3/uL (150-450); RED BLOOD CELL COUNT 4.13 10^6/uL (4.2-5.4); WHITE BLOOD CELL COUNT,WBC 5.2 10^3/uL (5.0-10.0)
[2023-01-21 01:21] LABS: A/G RATIO 1.1; ALANINE AMINOTRANSFERASE,ALT 14 U/L (14-59); ALBUMIN 3.9 g/dL (3.4-5.0); ALKALINE PHOSPHATASE 62 U/L (46-116); ANION GAP 11.4 mEq/L (7-13); ASPARTATE AMNIOTRANSFERASE,AST 14 U/L (15-37); BILIRUBIN TOTAL 0.4 mg/dL (0.2-1.0); BLOOD UREA NITROGEN,BUN 15 mg/dL (7-18); BUN/CREATININE RATIO 12.6 (No establ ref range); CALCIUM 8.9 mg/dL (8.5-10.1); CARBON DIOXIDE,CO2 29 mmol/L (21-32); CHLORIDE,CL 104 mmol/L (98-107); CREATININE 1.19 mg/dL (0.55-1.02); EST CRCL DRUG DOSING (CG) 66.48 mL/min; GLUCOSE RANDOM 110 mg/dL (70-99); POTASSIUM,K 4.4 mmol/L (3.5-5.1); PROTEIN TOTAL,TP 7.4 g/dL (6.4-8.2); SODIUM,NA 140 mmol/L (136-145)
[2023-01-21 01:22] LABS: ESTIMATED GFR 64 mL/min (>=60); ETHANOL BLOOD MEDICAL < 3 mg/dL (0)
[2023-01-21 01:29] LABS: BARBITURATES,URINE NEGATIVE (NEGATIVE); BENZODIAZEPINE,URINE NEGATIVE (NEGATIVE); MDMA (ECSTASY), URINE NEGATIVE (NEGATIVE); METHADONE,URINE NEGATIVE (NEGATIVE); METHAMPHETAMINES,URINE NEGATIVE (NEGATIVE); OPIATES,URINE NEGATIVE (NEGATIVE); TCA,URINE NEGATIVE (NEGATIVE)
[2023-01-21 01:30] LABS: AMPHETAMINES,URINE NEGATIVE (NEGATIVE); OXYCODONE,URINE NEGATIVE (NEGATIVE); PHENCYCLIDINE,URINE NEGATIVE (NEGATIVE)
[2023-01-21 11:08] VITALS: BP 107/72; PULSE 87
== END 2023-01-21 10:56 ==
LOC: DL.ED 01:14
DX: F41.9 Anxiety disorder, unspecified (principal); J45.909 Unspecified asthma, uncomplicated; Z79.899 Other long term (current) drug therapy; Z88.8 Allergy status to other drugs, medicaments and biological substances
CPT/HCPCS: 36415; 80053; 80305-QW; 80307; 81025; 85025; 99285; U0002

== ENCOUNTER 2023-03-27 18:16 | Emergency (ER) | payer MEDICAID ==
[2023-03-27 18:52] VITALS: BP 102/67; PULSE 96
[2023-03-27] MEDS ORDERED: Sodium Chloride 0.9% 1,000 ML IV ONE (18:59)
[2023-03-27 19:10] LABS: BASOPHILS PERCENT AUTO 0.5 % (0.0-1.0); EOSINOPHILS PERCENT AUTO 3.7 % (1.0-3.0); HEMATOCRIT 36.4 % (37.0-47.0); HEMOGLOBIN 11.8 g/dL (12.0-16.0); MEAN CORPUSCULAR HEMOGLOBIN 28.4 pg (27.0-34.0); MEAN CORPUSCULAR HGB CONC 32.4 g/dL (33.0-35.0); MEAN CORPUSCULAR VOLUME 87.5 fL (80-100); MONOCYTES PERCENT AUTO 12.5 % (2-8); NEUTROPHILS PERCENT AUTO 33.3 % (42.2-75.2); PLATELET COUNT,PLT 271 10^3/uL (150-450); RED BLOOD CELL COUNT 4.16 10^6/uL (4.2-5.4); WHITE BLOOD CELL COUNT,WBC 6.2 10^3/uL (5.0-10.0)
[2023-03-27 19:19] LABS: ALANINE AMINOTRANSFERASE,ALT 16 U/L (14-59); ALBUMIN 3.7 g/dL (3.4-5.0); ALKALINE PHOSPHATASE 66 U/L (46-116); ASPARTATE AMNIOTRANSFERASE,AST 11 U/L (15-37); BILIRUBIN TOTAL 0.5 mg/dL (0.2-1.0); BLOOD UREA NITROGEN,BUN 9 mg/dL (7-18); BUN/CREATININE RATIO 8.3 (No establ ref range); CALCIUM 8.5 mg/dL (8.5-10.1); CARBON DIOXIDE,CO2 29 mmol/L (21-32); CHLORIDE,CL 108 mmol/L (98-107); CREATININE 1.09 mg/dL (0.55-1.02); EST CRCL DRUG DOSING (CG) 75.39 mL/min; GLUCOSE RANDOM 91 mg/dL (70-99); PROTEIN TOTAL,TP 7.4 g/dL (6.4-8.2); SODIUM,NA 145 mmol/L (136-145)
[2023-03-27 19:26] LABS: ESTIMATED GFR 71 mL/min (>=60); ETHANOL BLOOD MEDICAL < 3 mg/dL (0)
[2023-03-27 20:30] LABS: APPEARANCE,URINE CLEAR (CLEAR); BILIRUBIN,URINE NEGATIVE (NEGATIVE); COLOR,URINE YELLOW (YELLOW); GLUCOSE,URINE NEGATIVE (NEGATIVE); KETONES,URINE NEGATIVE (NEGATIVE); LEUKOCYTE ESTERASE,URINE NEGATIVE (NEGATIVE); NITRITE,URINE NEGATIVE (NEGATIVE); OCCULT BLOOD,URINE NEGATIVE (NEGATIVE); PROTEIN,URINE NEGATIVE (NEGATIVE); UROBILINOGEN,URINE 0.2 mg/dL (0.2-1.0)
[2023-03-27 20:34] LABS: AMPHETAMINES,URINE NEGATIVE (NEGATIVE); BARBITURATES,URINE NEGATIVE (NEGATIVE); BENZODIAZEPINE,URINE NEGATIVE (NEGATIVE); MDMA (ECSTASY), URINE NEGATIVE (NEGATIVE); METHADONE,URINE NEGATIVE (NEGATIVE); METHAMPHETAMINES,URINE NEGATIVE (NEGATIVE); OPIATES,URINE NEGATIVE (NEGATIVE); OXYCODONE,URINE NEGATIVE (NEGATIVE); PHENCYCLIDINE,URINE NEGATIVE (NEGATIVE); TCA,URINE NEGATIVE (NEGATIVE)
== END 2023-03-27 21:21 | disposition home or self-care (01) ==
LOC: DL.ED 18:16
DX: T67.5XXA Heat exhaustion, unspecified, initial encounter (principal); F17.210 Nicotine dependence, cigarettes, uncomplicated; Z88.8 Allergy status to other drugs, medicaments and biological substances
CPT/HCPCS: 36415; 80053; 80305; 80307; 81003; 85025; 96360; 99283; 99284; J7030

== ENCOUNTER 2023-07-24 15:02 | Emergency (ER) | payer SELFPAY ==
[2023-07-24 15:53] LABS: APPEARANCE,URINE CLOUDY (CLEAR); BILIRUBIN,URINE NEGATIVE (NEGATIVE); COLOR,URINE YELLOW (YELLOW); GLUCOSE,URINE NEGATIVE (NEGATIVE); KETONES,URINE TRACE (NEGATIVE); LEUKOCYTE ESTERASE,URINE TRACE (NEGATIVE); NITRITE,URINE NEGATIVE (NEGATIVE); OCCULT BLOOD,URINE NEGATIVE (NEGATIVE); PROTEIN,URINE TRACE (NEGATIVE); UROBILINOGEN,URINE 0.2 mg/dL (0.2-1.0)
[2023-07-24 16:07] LABS: AMORPHOUS SEDIMENT,URINE MANY /HPF (NOT SEEN); BACTERIA,URINE MODERATE /HPF (0-FEW/HPF); EPITHELIAL CELLS,URINE MODERATE /HPF (NOT SEEN); MUCUS,URINE FEW /LPF (NOT SEEN); RBC,URINE 0-5 /HPF (0-5)
[2023-07-24 16:08] LABS: EOSINOPHILS PERCENT AUTO 4.3 % (1.0-3.0); HEMATOCRIT 35.2 % (37.0-47.0); HEMOGLOBIN 11.2 g/dL (12.0-16.0); LYMPHOCYTES PERCENT AUTO 40.1 % (20.5-50.1); MEAN CORPUSCULAR HEMOGLOBIN 28.1 pg (27.0-34.0); MEAN CORPUSCULAR HGB CONC 31.8 g/dL (33.0-35.0); MEAN CORPUSCULAR VOLUME 88.2 fL (80-100); MONOCYTES PERCENT AUTO 11.1 % (2-8); NEUTROPHILS PERCENT AUTO 44.5 % (42.2-75.2); PLATELET COUNT,PLT 251 10^3/uL (150-450); RED BLOOD CELL COUNT 3.99 10^6/uL (4.2-5.4); WHITE BLOOD CELL COUNT,WBC 5.8 10^3/uL (5.0-10.0)
[2023-07-24 16:27] LABS: ALANINE AMINOTRANSFERASE,ALT 17 U/L (14-59); ALBUMIN 3.6 g/dL (3.4-5.0); ALKALINE PHOSPHATASE 54 U/L (46-116); ANION GAP 13.5 mEq/L (7-13); ASPARTATE AMNIOTRANSFERASE,AST 14 U/L (15-37); BILIRUBIN TOTAL 0.9 mg/dL (0.2-1.0); BLOOD UREA NITROGEN,BUN 19 mg/dL (7-18); BUN/CREATININE RATIO 15.2 (No establ ref range); CALCIUM 8.4 mg/dL (8.5-10.1); CARBON DIOXIDE,CO2 27 mmol/L (21-32); CHLORIDE,CL 104 mmol/L (98-107); CREATININE 1.25 mg/dL (0.55-1.02); GLUCOSE RANDOM 96 mg/dL (70-99); POTASSIUM,K 4.5 mmol/L (3.5-5.1); PROTEIN TOTAL,TP 7.1 g/dL (6.4-8.2); SODIUM,NA 140 mmol/L (136-145)
[2023-07-24 16:28] LABS: C-REACTIVE PROTEIN < 0.50 ng/dL (<=0.50); ESTIMATED GFR 61 mL/min (>=60)
[2023-07-24] MEDS ORDERED: cefTRIAXone 2 GM Vial IVPUSH ONE (16:42)
[2023-07-24] MEDS ORDERED: Sodium Chloride 0.9% 1,000 ML IV ONE (16:43)
[2023-07-24] MEDS ORDERED: Take Home: Doxycycline 100 MG Cap, 4 Cap Pack PO ONE (16:43)
[2023-07-24] MEDS ORDERED: Ondansetron 4 MG/2 ML SDV IV ONE (16:43)
[2023-07-24 17:44] VITALS: BP 99/62; PULSE 65
[2023-07-26 14:46] LABS: C.TRACHOMATIS BY TMA Negative (Negative); M GENITALIUM Negative (Negative); M GENITALIUM SOURCE Urine; N.GONORRHOEAE BY TMA Negative (Negative); SOURCE Urine
== END 2023-07-24 18:02 | disposition home or self-care (01) ==
LOC: DL.ED 15:02
DX: N73.9 Female pelvic inflammatory disease, unspecified (principal); E86.0 Dehydration; Z88.8 Allergy status to other drugs, medicaments and biological substances
CPT/HCPCS: 36415; 80053; 81001; 81025; 85025; 86140; 87086; 87491; 87563; 87591; 96374; 96375; 99284; A9270; J0696; J2405; J7030

== ENCOUNTER 2024-04-10 07:42 | Inpatient (IN) | payer MEDICAID, OTHER ==
[2024-04-10] MEDS: Oxytocin/Normal Saline 30 UNIT/500 ML BAG IV SCH (09:00)
[2024-04-10] MEDS: Lactated Ringers 1,000 ML IV SCH (09:16)
[2024-04-10] MEDS: Lidocaine 1% 30 ML SDV INJECT ONE (09:35)
[2024-04-10] MEDS ORDERED: Acetaminophen 325 MG Tab PO PRN (09:37)
[2024-04-10] MEDS ORDERED: Misoprostol 400 MCG (4 X 100 MCG TAB) RECTAL PRN (09:37)
[2024-04-10] MEDS ORDERED: Tranexamic Acid 1,000 MG in Sodium Chloride 0.9% 100 ML IV PRN (09:37)
[2024-04-10] MEDS ORDERED: Sodium Chloride 0.9% 10 ML Syringe FLUSH PRN (09:37)
[2024-04-10] MEDS ORDERED: Carboprost Tromethamine 250 MCG/1 ML Amp IM PRN (09:37)
[2024-04-10] MEDS ORDERED: Simethicone 80 MG Tab.Chew PO PRN (09:37)
[2024-04-10] MEDS: Ibuprofen 800 MG Tab PO SCH (12:41)
[2024-04-10] MEDS: Oxytocin 10 Units/1 ML SDV IM PRN (15:00)
[2024-04-10] MEDS: levETIRAcetam 500 MG Tab PO SCH (20:34)
[2024-04-11] MEDS: Benzocaine/Menthol 20%-0.5% Spray 78 GM Cannister TOP PRN (02:17)
[2024-04-11] MEDS: Witch Hazel Medicated Pads 100/Jar TOP PRN (02:18)
[2024-04-11 06:30] LABS: HEMATOCRIT 31.7 % (37.0-47.0); HEMOGLOBIN 10.1 g/dL (12.0-16.0); MEAN CORPUSCULAR HEMOGLOBIN 29.3 pg (27.0-34.0); MEAN CORPUSCULAR HGB CONC 31.9 g/dL (33.0-35.0); MEAN CORPUSCULAR VOLUME 91.9 fL (80-100); RED BLOOD CELL COUNT 3.45 10^6/uL (4.2-5.4); WHITE BLOOD CELL COUNT,WBC 9.8 10^3/uL (5.0-10.0)
[2024-04-11] MEDS: Prenatal Multivitamin with Calcium/Folic Acid/Iron Tab PO SCH (08:31)
[2024-04-11] MEDS: Docusate Sodium 100 MG Cap PO PRN (08:31)
[2024-04-11] MEDS: Measles, Mumps & Rubella Vaccine 0.5 ML SDV SUBCUT ONE (08:34)
[2024-04-11] MEDS ORDERED: Diphtheria,Pertussis(Acell),Tetanus Vaccine 0.5 ML Syringe IM ONE (08:58)
[2024-04-11 09:12] VITALS: BP 102/67; PULSE 87
== END 2024-04-11 09:13 | disposition home or self-care (01) | DRG 806 ==
LOC: DL.OBCHECK 07:42 → DL.OB 09:08 → UNDOADMIN 09:08 → DL.OB 09:28
PROVIDERS: ADMIT Family Medicine; ATTEND Family Medicine
PROC: 10E0XZZ Delivery of Products of Conception, External Approach (ICD-10-PCS; principal; 2024-04-10)
PROC: 0KQM0ZZ Repair Perineum Muscle, Open Approach (ICD-10-PCS; 2024-04-10)
DX: O99.62 Diseases of the digestive system complicating childbirth (principal); K51.90 Ulcerative colitis, unspecified, without complications; Z37.0 Single live birth; Z3A.35 35 weeks gestation of pregnancy; O99.354 Diseases of the nervous system complicating childbirth; G40.909 Epilepsy, unspecified, not intractable, without status epilepticus; O69.81X0 Labor and delivery complicated by cord around neck, without compression, not applicable or unspecified; O70.1 Second degree perineal laceration during delivery; O99.344 Other mental disorders complicating childbirth; F31.9 Bipolar disorder, unspecified
CPT/HCPCS: 36415; 59409; 84112; 85027; 90471; 90707; A9270-GY; J2590; J3490; J7120

== ENCOUNTER 2024-07-19 09:58 | Emergency (ER) | payer MEDICAID, OTHER ==
[2024-07-19 10:56] LABS: BASOPHILS PERCENT AUTO 0.2 % (0.0-1.0); EOSINOPHILS PERCENT AUTO 1.7 % (1.0-3.0); HEMATOCRIT 39.6 % (37.0-47.0); HEMOGLOBIN 12.6 g/dL (12.0-16.0); LYMPHOCYTES PERCENT AUTO 36.9 % (20.5-50.1); MEAN CORPUSCULAR HEMOGLOBIN 27.8 pg (27.0-34.0); MEAN CORPUSCULAR HGB CONC 31.8 g/dL (33.0-35.0); MEAN CORPUSCULAR VOLUME 87.2 fL (80-100); MONOCYTES PERCENT AUTO 9.7 % (2-8); NEUTROPHILS PERCENT AUTO 51.5 % (42.2-75.2); PLATELET COUNT,PLT 373 10^3/uL (150-450); RED BLOOD CELL COUNT 4.54 10^6/uL (4.2-5.4); WHITE BLOOD CELL COUNT,WBC 6.4 10^3/uL (5.0-10.0)
[2024-07-19 11:07] LABS: APPEARANCE,URINE TURBID (CLEAR); BILIRUBIN,URINE SMALL (NEGATIVE); COLOR,URINE DARK YELLOW (YELLOW); GLUCOSE,URINE NEGATIVE (NEGATIVE); KETONES,URINE 15 (NEGATIVE); LEUKOCYTE ESTERASE,URINE TRACE (NEGATIVE); NITRITE,URINE NEGATIVE (NEGATIVE); OCCULT BLOOD,URINE LARGE (NEGATIVE); PH,URINE 5.5 (5.0-9.0); PROTEIN,URINE 100 (NEGATIVE); UROBILINOGEN,URINE 0.2 mg/dL (0.2-1.0)
[2024-07-19 11:14] LABS: A/G RATIO 0.9; ALANINE AMINOTRANSFERASE,ALT 15 U/L (14-59); ALBUMIN 3.8 g/dL (3.4-5.0); ALKALINE PHOSPHATASE 56 U/L (46-116); ANION GAP 15.8 mEq/L (7-13); ASPARTATE AMNIOTRANSFERASE,AST 18 U/L (15-37); BILIRUBIN TOTAL 0.7 mg/dL (0.2-1.0); BLOOD UREA NITROGEN,BUN 18 mg/dL (7-18); BUN/CREATININE RATIO 17.3 (No establ ref range); CALCIUM 10.3 mg/dL (8.5-10.1); CARBON DIOXIDE,CO2 26 mmol/L (21-32); CHLORIDE,CL 106 mmol/L (98-107); CREATININE 1.04 mg/dL (0.55-1.02); EST CRCL DRUG DOSING (CG) 78.32 mL/min; GLUCOSE RANDOM 93 mg/dL (70-99); POTASSIUM,K 3.8 mmol/L (3.5-5.1); PROTEIN TOTAL,TP 8.1 g/dL (6.4-8.2); SODIUM,NA 144 mmol/L (136-145)
[2024-07-19 11:15] LABS: HCG QUALITATIVE,SERUM NEGATIVE (NEGATIVE)
[2024-07-19 11:17] LABS: ESTIMATED GFR 75 mL/min (>=60); LACTIC ACID 1.1 mmol/L (0.4-2.0)
[2024-07-19 11:34] LABS: BACTERIA,URINE MANY /HPF (0-FEW/HPF); EPITHELIAL CELLS,URINE FEW /HPF (NOT SEEN); MUCUS,URINE FEW /LPF (NOT SEEN); RBC,URINE PACKED /HPF (0-5)
[2024-07-19 12:29] VITALS: BP 110/68; PULSE 78
== END 2024-07-19 12:25 | disposition home or self-care (01) ==
LOC: DL.ED 09:58
DX: K51.20 Ulcerative (chronic) proctitis without complications (principal); J45.909 Unspecified asthma, uncomplicated; Z88.8 Allergy status to other drugs, medicaments and biological substances; Z79.899 Other long term (current) drug therapy
CPT/HCPCS: 36415; 80053; 81001; 83605; 84703; 85025; 99283

== ENCOUNTER 2024-12-06 14:46 | Emergency (ER) | payer SELFPAY ==
[2024-12-06 15:15] VITALS: BP 96/63; PULSE 80
[2024-12-06 15:23] LABS: BASOPHILS PERCENT AUTO 0.2 % (0.0-1.0); EOSINOPHILS PERCENT AUTO 5.4 % (1.0-3.0); HEMATOCRIT 38.4 % (37.0-47.0); HEMOGLOBIN 12.2 g/dL (12.0-16.0); LYMPHOCYTES PERCENT AUTO 51.2 % (20.5-50.1); MEAN CORPUSCULAR HGB CONC 31.8 g/dL (33.0-35.0); MONOCYTES PERCENT AUTO 10.2 % (2-8); PLATELET COUNT,PLT 338 10^3/uL (150-450); RED BLOOD CELL COUNT 4.52 10^6/uL (4.2-5.4); WHITE BLOOD CELL COUNT,WBC 5.6 10^3/uL (5.0-10.0)
[2024-12-06 15:51] LABS: A/G RATIO 0.8; ALBUMIN 3.6 g/dL (3.4-5.0); ANION GAP 10.8 mEq/L (7-13); BILIRUBIN TOTAL 0.7 mg/dL (0.2-1.0); BUN/CREATININE RATIO 11.8 (No establ ref range); CALCIUM 9.6 mg/dL (8.5-10.1); CREATININE 1.1 mg/dL (0.55-1.02); EST CRCL DRUG DOSING (CG) 73.38 mL/min; POTASSIUM,K 3.8 mmol/L (3.5-5.1); PROTEIN TOTAL,TP 8.1 g/dL (6.4-8.2)
== END 2024-12-06 16:38 | disposition home or self-care (01) ==
LOC: DL.ED 14:46
DX: K51.90 Ulcerative colitis, unspecified, without complications (principal); Z79.899 Other long term (current) drug therapy; Z88.8 Allergy status to other drugs, medicaments and biological substances
CPT/HCPCS: 36415; 80053; 84703; 85025; 99283; 99284

== ENCOUNTER 2025-02-04 06:09 | Day surgery (SDC) | payer MEDICAID, OTHER ==
[~2025-02-04 06:09] MED LIST: Lactated Ringers 1,000 ML IV ONE; Propofol 200 MG/20 ML SDV IV ONE
[2025-02-04] MEDS: Lactated Ringers 1,000 ML IV SCH (06:50)
[2025-02-04] MEDS ORDERED: Propofol 200 MG/20 ML SDV ONE (08:10)
[2025-02-04 08:55] VITALS: BP 102/64; PULSE 66
== END 2025-02-04 09:17 | disposition home or self-care (01) ==
LOC: DL.ENDO 06:09
PROVIDERS: ATTEND Internal Medicine Gastroenterology
DX: K51.20 Ulcerative (chronic) proctitis without complications (principal); K62.5 Hemorrhage of anus and rectum; R19.7 Diarrhea, unspecified; Z88.8 Allergy status to other drugs, medicaments and biological substances; Z90.49 Acquired absence of other specified parts of digestive tract
CPT/HCPCS: 00811; J2704; J7120